=== PATIENT | male | born 1960 ===

== ENCOUNTER 2020-12-01 14:10 | Outpatient (REF) | payer MEDICAID, SELFPAY ==
[2020-12-01 17:36] LABS: Hematocrit 38.7 % (42-52); Hemoglobin 12.9 g/dl (14.0-18.0); Mean Corpuscular HGB Conc 33.3 g/dl (31.0-36.0); Mean Corpuscular Hemoglobin 30.4 pg (27.0-33.0); Mean Corpuscular Volume 91.3 fL (80-98); Mean Platelet Volume 9.7 fL (9.4-12.4); Platelet Count 273 X10*3/uL (160-400); Red Blood Count 4.24 X10*6/uL (4.60-5.80); Red Cell Distribution Width 12.2 % (11.0-16.0); White Blood Count 6.5 X10*3/uL (4.8-10.8)
[2020-12-01 18:03] LABS: Alanine Aminotransferase 13 U/L (0-40); Albumin Level 4.4 g/dL (3.5-5.0); Alkaline Phosphatase 72 U/L (39-117); Anion Gap 12 (12-20); Aspartate Amino Transferase 10 U/L (5-37); Bilirubin Total 0.9 mg/dL (0.0-1.0); Blood Urea Nitrogen 15 mg/dL (9-16); C Reactive Protein 0.12 mg/dL (< or = 0.50); Calcium 10.5 mg/dL (8.4-10.2); Carbon Dioxide 28 mmol/L (22-29); Chloride 104 mmol/L (96-108); Estimated Glomerular Filt Rate > 60; Glucose Random 78 mg/dL (60-115); Magnesium 1.9 mg/dL (1.6-2.6); Potassium 4.4 mmol/L (3.3-5.1); Sodium 140 mmol/L (135-145); Total Protein 7.1 g/dL (6.5-8.0)
[2020-12-01 18:15] LABS: Vitamin D 25-OH Total 23.6 ng/mL (>30)
[2020-12-01 18:29] LABS: Vitamin B12 304 pg/mL (200-900)
== END 2020-12-01 14:11 | disposition home or self-care (01) ==
LOC: HO.MANLDS 14:10
PROVIDERS: PCP Internal Medicine; Visit Provider Internal Medicine
DX: G35 Multiple sclerosis (principal)
CPT/HCPCS: 36415; 80053; 82306; 82550; 82607; 83735; 85027; 86140

== ENCOUNTER 2021-09-03 14:05 | Outpatient (REF) | payer MEDICARE, MEDICAID, SELFPAY ==
[2021-09-03 18:57] LABS: Hematocrit 39.3 % (42.0-52.0); Hemoglobin 12.9 g/dl (14.0-18.0); Mean Corpuscular HGB Conc 32.8 g/dl (31.0-36.0); Mean Corpuscular Hemoglobin 30.1 pg (27.0-33.0); Mean Corpuscular Volume 91.8 fL (80.0-98.0); Mean Platelet Volume 10.4 fL (9.4-12.4); Platelet Count 233 X10*3/uL (160-400); Red Blood Count 4.28 X10*6/uL (4.60-5.80); White Blood Count 5.9 X10*3/uL (4.8-10.8)
[2021-09-03 19:16] LABS: Alanine Aminotransferase 22 U/L (0-40); Albumin Level 4.2 g/dL (3.5-5.0); Alkaline Phosphatase 83 U/L (39-117); Anion Gap 12 (12-20); Aspartate Amino Transferase 15 U/L (5-37); Bilirubin Total 0.8 mg/dL (0.0-1.0); Blood Urea Nitrogen 16 mg/dL (9-16); C Reactive Protein 0.04 mg/dL (< or = 0.50); Calcium 10.7 mg/dL (8.4-10.2); Carbon Dioxide 29 mmol/L (22-29); Chloride 105 mmol/L (96-108); Estimated Glomerular Filt Rate > 60; Glucose Random 79 mg/dL (60-115); Potassium 5.6 mmol/L (3.3-5.1); Sodium 140 mmol/L (135-145)
[2021-09-03 19:33] LABS: Vitamin D 25-OH Total 28.9 ng/mL (>30)
[2021-09-04 06:23] LABS: Vitamin B12 306 pg/mL (200-900)
== END 2021-09-03 14:06 | disposition home or self-care (01) ==
LOC: HO.MANLDS 14:05
PROVIDERS: PCP Internal Medicine; Visit Provider Internal Medicine
DX: G35 Multiple sclerosis (principal)
CPT/HCPCS: 36415; 80053; 82306; 82607; 83735; 85027; 86140

== ENCOUNTER 2021-10-20 20:11 | Emergency (ER) | payer MEDICARE, MEDICAID, SELFPAY ==
--- NOTE | ~2021-10-20 | XR_ITS ---
EXAMINATION: XR CHEST CLINICAL INFORMATION: Weakness COMPARISON: None TECHNIQUE: Frontal view of the chest was obtained. FINDINGS: Cardiac leads overlie the chest. The lungs are well expanded. There is no focal consolidation, edema, or effusion. No pneumothorax. The cardiomediastinal silhouette is within normal limits. No acute osseous abnormality. XR/XR chest 1V IMPRESSION: Clear lungs.
[2021-10-20 20:24] VITALS: BP 109/68; PULSE 75; RESP 20; TEMP 37.2; O2SAT 96; BMI 20.7
--- NOTE | 2021-10-20 20:46 | ED_ITS ---
HPI - Fall General Chief Complaint: Fall Stated Complaint: fall sob Time Seen by Provider: 10/20/21 20:37 Source: patient and old records reviewed Mode of arrival: EMS Limitations: no limitations History of Present Illness HPI Narrative: 61 yo male with hx of MS states he loses is balance and today was worse than u sual denies infectious symptoms, change in medications - he fell x 2 denies head strike or injury. He states he is sick of having this. complaint: fall Onset (ago): day(s) (1) Fall from: standing Fall witnessed: yes, by family Place fall occurred: home Loss of consciousness: none Prolonged down time: no Symptoms prior to fall: none Context: history of frequent falls Severity: mild Associated symptoms (after fall): denies Related Data Allergies Allergy/AdvReac Type Severity Reaction Status Date / Time Unable to Assess Allergy Verified 10/20/21 20:58 Review of Systems Review of Systems: Constitutional : No Fever, No Chills, pos Fatigue, No Malaise ENT/Mouth : No sore throat, No Rhinorrhea Eyes: No Eye Pain, No Swelling, No Redness Cardiovascular : No Chest Pain, No SOB, No Dyspnea on Exertion, No Orthopnea, No Edema, No Palpitations Respiratory : No Cough, No Sputum, No Wheezing Gastrointestinal : No Nausea, No Vomiting, No Diarrhea, No Constipation, No abdominal Pain, No Hematochezia, No Melena Genitourinary : No Dysuria, No Urinary Frequency, No Hematuria, Musculoskeletal : No joint pain, No Myalgias, No Joint Swelling Skin : No Skin Lesions, No rash Neuro : pos Weakness, No Numbness, No Dizziness, No Headache Psych : No Anxiety/Panic, No Depression Heme/Lymph: No Bruising, No Bleeding,No Lymphadenopathy Endocrine : No Polyuria, No Polydipsia All other systems reviewed and are negative PMFSH Past Medical History Attestation statement: The following information was validated with the patient. Medical History Multiple sclerosis Social History Social History (Updated 10/20/21 @ 22:01 by Ericka Byrd DO) Patient Tobacco Use Status: Never used Tobacco Advance Directives: No Advance Directives Information Provided: No Physical Exam Vital Signs: Vital Signs: Last Vital Signs Temp 98.9 F 10/20/21 20:24 Pulse 56 10/20/21 23:53 Resp 17 10/20/21 23:53 BP 116/67 10/20/21 23:53 Pulse Ox 98 10/20/21 23:53 O2 Del Method 10/20/21 23:53 BMI result Body Mass Index 20.7 Appearance: Alert. Oriented X3. No acute distress. Eyes: Pupils equal, round and reactive to light. ENT: Pharynx mild dry MM Neck: Normal inspection. Neck supple. CVS: Normal heart rate and rhythm. Pulses normal. Respiratory: No respiratory distress. Breath sounds normal. Abdomen: Soft and nontender. Skin: Skin warm and dry. Normal skin color. poor skin turgor. Extremities: No lower extremity edema. No calf ttp Neuro: Oriented X 3. No motor deficit. No sensory deficit. Course Course Course Narrative: discussed findings with - patient states he wants to go home, both aware no imaging of head was done patient wants to leave and doesn't want to stay for urine sample, aware, patient just wants to go home, aware we are looking for infection, he is GCS 15. MDM - Fall MDM Narrative Medical decision making narrative: 61 yo male with hx of MS here with 2 falls he denies head strike or injury - at this time will obtain labs, UA, CXR for pneumonia or precipitating cause for weakness. Will hydrate - he denies wanting to go to rehab and wants to go back home to live with his . Lab Data Result diagrams: 10/20/21 21:40 10/20/21 21:40 Labs: Lab Results 10/20/21 10/20/21 10/20/21 Range/Units 21:39 21:40 21:40 WBC 10.4 (4.8-10.8) X10*3/uL RBC 4.35 L (4.60-5.80) X10*6/uL Hgb 13.0 L (14.0-18.0) g/dl Hct 38.7 L (42.0-52.0) % MCV 89.0 (80.0-98.0) fL MCH 29.9 (27.0-33.0) pg MCHC 33.6 (31.0-36.0) g/dl RDW 12.5 (11.0-16.0) % Plt Count 211 (160-400) X10*3/uL MPV 9.4 (9.4-12.4) fL Immature Gran % (Auto) 0.3 (0.0-0.4) % Neut % (Auto) 87.9 H (45-73) % Lymph % (Auto) 4.7 L (20-40) % [place] % (Auto) 5.6 (2-11) % Eos % (Auto) 1.3 (0-4) % Baso % (Auto) 0.2 (0-2) % Lymph # (Auto) 0.5 L (1.2-4.9) X10*3/uL [place] # (Auto) 0.6 (0.1-1.2) X10*3/uL Eos # (Auto) 0.1 (0.0-0.4) X10*3/uL Baso # (Auto) 0.0 (0.0-0.2) X10*3/uL Abs Immat Gran (auto) 0.03 (0.00-0.03) X10*3/uL Absolute Neuts (auto) 9.2 H (2.0-8.3) x10*3/uL Absolute Nucleated RBC 0.000 (0.0-0.012) X10*3/uL Nucleated RBC % (auto) 0.0 (0.0-0.2) /100WBC Sodium 141 (135-145) mmol/L Potassium 4.2 D (3.3-5.1) mmol/L Chloride 103 (96-108) mmol/L Carbon Dioxide 30 H (22-29) mmol/L Anion Gap 12 (12-20) BUN 22 H (9-16) mg/dL Creatinine 1.06 (0.5-1.4) mg/dL Estim Creat Clear Calc 64.9 Estimated GFR > 60 Random Glucose 107 D (60-115) mg/dL Calcium 9.9 D (8.4-10.2) mg/dL Magnesium 2.0 (1.6-2.6) mg/dL Total Bilirubin 0.8 (0.0-1.0) mg/dL Direct Bilirubin 0.4 (0.0-0.5) mg/dL AST 55 H (5-37) U/L ALT 40 (0-40) U/L Alkaline Phosphatase 129 H D (39-117) U/L Total Creatine Kinase 190 H D (38-174) U/L Total Protein 6.8 (6.5-8.0) g/dL Albumin 4.1 (3.5-5.0) g/dL Lipase 19 (8-78) U/L COVID-19 (EYAD) Negative (Negative) COVID-19 Clin Com See Note ECG Data Attestation: I personally reviewed and interpreted this ECG as follows: ECG interpretation date: 10/20/21 ECG interpretation time: 22:11 Interpretation: Rate: 67 Rhythm: NSR Lizella: normal Normal P waves. Normal EUNICE. Normal QRS complex. ST T wave : nonspecific aVL, no SHANE qTC: normal prior studies: no acute ischemia The study has been interpreted contemporaneously by me. . Discharge Plan Discharge Clinical Impression: Acute dehydration Falls Qualifiers: Encounter type: initial encounter Qualified Code(s): W19.XXXA - Unspecified fall, initial encounter Patient Disposition: Home, Self-Care Instructions: Dehydration (ED) Additional Instructions: return to ED for any worsening symptoms or concerns given hydration in emergency department chest xray negative for pneumonia offered to test urine in the emergency department but you declined please follow up with your doctor this week
--- NOTE | 2021-10-20 20:59 | ECG_ITS ---
Test Reason : weakness Blood Pressure : / mmHG Vent. Rate : 067 BPM Atrial Rate : 067 BPM P-R Int : 146 ms QRS Dur : 092 ms QT Int : 390 ms P-R-T Axes : 056 081 077 degrees QTc Int : 412 ms Normal sinus rhythm Normal ECG No previous ECGs available Referred By: Ericka Byrd Electronically Signed By:Bakari Mcfarlane
[2021-10-20] MEDS: 0.9 % Sodium Chloride 1,000 ML 999 ML IVCONT (21:53)
--- NOTE | 2021-10-20 21:53 | PC.NURSE ---
NS administered to pt per MAR
[2021-10-20 21:54] LABS: MANUAL DIFF FLAG NO
[2021-10-20 21:55] LABS: Basophils Percent Auto 0.2 % (0-2); Eosinophils Absolute Auto 0.1 X10*3/uL (0.0-0.4); Eosinophils Percent Auto 1.3 % (0-4); Hematocrit 38.7 % (42.0-52.0); Imm Gran Abs Auto 0.03 X10*3/uL (0.00-0.03); Imm Gran Pct Auto 0.3 % (0.0-0.4); Lymphocytes Absolute Auto 0.5 X10*3/uL (1.2-4.9); Lymphocytes Percent Auto 4.7 % (20-40); Mean Corpuscular HGB Conc 33.6 g/dl (31.0-36.0); Mean Corpuscular Hemoglobin 29.9 pg (27.0-33.0); Mean Platelet Volume 9.4 fL (9.4-12.4); Monocytes Absolute Auto 0.6 X10*3/uL (0.1-1.2); Monocytes Percent Auto 5.6 % (2-11); Neutrophils Absolute Auto 9.2 x10*3/uL (2.0-8.3); Neutrophils Percent Auto 87.9 % (45-73); Platelet Count 211 X10*3/uL (160-400); Red Blood Count 4.35 X10*6/uL (4.60-5.80); Red Cell Distribution Width 12.5 % (11.0-16.0); White Blood Count 10.4 X10*3/uL (4.8-10.8)
[2021-10-20 22:06] LABS: COVID-19 Test Negative (Negative)
[2021-10-20 22:13] LABS: Alanine Aminotransferase 40 U/L (0-40); Albumin Level 4.1 g/dL (3.5-5.0); Alkaline Phosphatase 129 U/L (39-117); Anion Gap 12 (12-20); Aspartate Amino Transferase 55 U/L (5-37); Bilirubin Direct 0.4 mg/dL (0.0-0.5); Bilirubin Total 0.8 mg/dL (0.0-1.0); Blood Urea Nitrogen 22 mg/dL (9-16); Calcium 9.9 mg/dL (8.4-10.2); Carbon Dioxide 30 mmol/L (22-29); Chloride 103 mmol/L (96-108); Creatinine Clr Calc Pharmacy 64.9; Estimated Glomerular Filt Rate > 60; Glucose Random 107 mg/dL (60-115); Lipase 19 U/L (8-78); Potassium 4.2 mmol/L (3.3-5.1); Sodium 141 mmol/L (135-145); Total Protein 6.8 g/dL (6.5-8.0)
[2021-10-20 23:53] VITALS: BP 116/67; PULSE 56; RESP 17; O2SAT 98
--- NOTE | 2021-10-21 00:32 | PC.NURSE ---
Patient attempting to urinate but after numerous attempts patient still unable to pee. Patient states he cannot do it here. Patient was bladder scanned to see if he was retaining urine.
--- NOTE | 2021-10-21 00:38 | PC.NURSE ---
Patient had 550 in his bladder. Patient just wants to go home and is refusing to be straight cathed. MD aware and states that patient can go home
== END 2021-10-21 00:39 | disposition home or self-care (01) ==
PROVIDERS: Emergency Provider Emergency Medicine; PCP Internal Medicine
DX: E86.0 Dehydration (principal); R29.6 Repeated falls; G35 Multiple sclerosis; Z20.822 Contact with and (suspected) exposure to COVID-19
CPT/HCPCS: 51798; 71045; 80048; 80076; 82550; 83690; 83735; 85025; 87635; 93005; 96360; 99284; 99285

== ENCOUNTER 2021-10-29 07:51 | Outpatient (REF) | payer MEDICARE, MEDICAID, SELFPAY ==
--- NOTE | ~2021-10-29 | XR_ITS ---
EXAMINATION: XR CHEST CLINICAL INFORMATION: Possible aspiration status post barium swallow. COMPARISON: 10/20/2021 chest radiograph. TECHNIQUE: 2 views of the chest were obtained. FINDINGS: Oral contrast is seen within the airway in the trachea and left mainstem bronchus extending to the left lower lobe. Mild contrast is seen within the esophagus and visualized gastric lumen. The lungs are clear. There are no pleural effusions. The heart and mediastinal structures are unremarkable. XR/XR chest 2V IMPRESSION: Positive aspiration of barium contrast as detailed above.
--- NOTE | ~2021-10-29 | FL_ITS ---
EXAMINATION: FL BARIUM SWALLOW CLINICAL INFORMATION: Dysphagia for solids and liquids. COMPARISON: None TECHNIQUE: Barium swallow examination is performed using fluoroscopic evaluation in addition to multiple fluoroscopic spot views. The patient was enlarged supine and semiupright position on the fluoroscopy table. He was not able to stand because of weakness secondary to multiple sclerosis. Fluoroscopy time: 1.3 minutes minutes DAP: 1.371 Gycm2 FINDINGS: Evaluation was limited due to difficulties with patient positioning due to weakness for multiple sclerosis. The patient swallowed thin barium by cup, initiating swallowing normally. Normal esophageal peristalsis seen. No fixed esophageal mucosal abnormality. The patient was then given thin barium by cup. He swallowed a single swallow normally but when asked to drink repeat swallows, the patient aspirated and the study was terminated. FL/FL barium swallow IMPRESSION: Moderate volume aspiration of thick barium. Please see subsequent chest x-ray. Recommend swallowing evaluation by speech and language therapy.
== END 2021-10-29 07:52 | disposition home or self-care (01) ==
LOC: HO.XRAY 07:51
PROVIDERS: PCP Internal Medicine; Visit Provider Physician Assistant
DX: R13.12 Dysphagia, oropharyngeal phase (principal)
CPT/HCPCS: 71046; 74220

== ENCOUNTER 2021-10-31 10:07 | Outpatient (REF) | payer MEDICARE, MEDICAID, SELFPAY ==
--- NOTE | ~2021-10-31 | XR_ITS ---
EXAMINATION: XR CHEST CLINICAL INFORMATION: Pneumonitis due to inhalation of food/vomiting COMPARISON: Examination of 2 days previous. TECHNIQUE: 2 views of the chest were obtained. FINDINGS: Previously aspirated barium no longer distinctly seen. No evidence for airspace consolidation or vascular congestion. Slight blunting of posterior sulcus and costophrenic angles observed which may reflect small effusions. XR/XR chest 2V IMPRESSION: Previously aspirated barium no longer distinctly seen. No dominant infiltrates observed. Small posterior sulcus and costophrenic angle effusions.
== END 2021-10-31 10:08 | disposition home or self-care (01) ==
LOC: HO.XRAY 10:07
PROVIDERS: PCP Internal Medicine; Visit Provider Physician Assistant
DX: J69.0 Pneumonitis due to inhalation of food and vomit (principal)
CPT/HCPCS: 71046

== ENCOUNTER 2021-11-14 11:47 | Outpatient (REF) | payer MEDICARE, MEDICAID, SELFPAY ==
[2021-11-14 12:36] LABS: MANUAL DIFF FLAG NO
[2021-11-14 12:37] LABS: Basophils Absolute Auto 0.1 X10*3/uL (0.0-0.2); Basophils Percent Auto 1.2 % (0-2); Eosinophils Absolute Auto 0.2 X10*3/uL (0.0-0.4); Eosinophils Percent Auto 4.6 % (0-4); Hematocrit 38.5 % (42.0-52.0); Imm Gran Abs Auto 0.01 X10*3/uL (0.00-0.03); Imm Gran Pct Auto 0.2 % (0.0-0.4); Lymphocytes Absolute Auto 1.1 X10*3/uL (1.2-4.9); Lymphocytes Percent Auto 24.9 % (20-40); Mean Corpuscular HGB Conc 33.8 g/dl (31.0-36.0); Mean Corpuscular Hemoglobin 30.7 pg (27.0-33.0); Mean Corpuscular Volume 90.8 fL (80.0-98.0); Mean Platelet Volume 10.8 fL (9.4-12.4); Monocytes Absolute Auto 0.3 X10*3/uL (0.1-1.2); Monocytes Percent Auto 7.1 % (2-11); Neutrophils Absolute Auto 2.7 x10*3/uL (2.0-8.3); Platelet Count 228 X10*3/uL (160-400); Red Blood Count 4.24 X10*6/uL (4.60-5.80); Red Cell Distribution Width 13.1 % (11.0-16.0); White Blood Count 4.3 X10*3/uL (4.8-10.8)
[2021-11-14 14:33] LABS: Thyroid Stimulating Hormone 1.86 uIU/mL (0.32-4.0); Vitamin D 25-OH Total 22.9 ng/mL (>30)
[2021-11-14 14:41] LABS: Vitamin B12 340 pg/mL (200-900)
[2021-11-14 15:05] LABS: Alanine Aminotransferase 31 U/L (0-40); Albumin Level 4.2 g/dL (3.5-5.0); Alkaline Phosphatase 87 U/L (39-117); Anion Gap 15 (12-20); Aspartate Amino Transferase 23 U/L (5-37); Bilirubin Total 0.8 mg/dL (0.0-1.0); Blood Urea Nitrogen 14 mg/dL (9-16); Calcium 9.9 mg/dL (8.4-10.2); Carbon Dioxide 26 mmol/L (22-29); Chloride 104 mmol/L (96-108); Estimated Glomerular Filt Rate > 60; Glucose Random 96 mg/dL (60-115); Potassium 4.5 mmol/L (3.3-5.1); Sodium 140 mmol/L (135-145); Total Protein 6.9 g/dL (6.5-8.0)
== END 2021-11-14 11:48 | disposition home or self-care (01) ==
LOC: HO.MANLDS 11:47
PROVIDERS: Visit Provider Internal Medicine
DX: E46 Unspecified protein-calorie malnutrition (principal)
CPT/HCPCS: 36415; 80053; 82306; 82607; 84134; 84443; 85025

== ENCOUNTER 2022-03-04 12:08 | Outpatient (REF) | payer MEDICARE, MEDICAID, SELFPAY ==
[2022-03-04 13:56] LABS: MANUAL DIFF FLAG NO
[2022-03-04 13:59] LABS: Basophils Percent Auto 0.4 % (0-2); Eosinophils Percent Auto 0.5 % (0-4); Hematocrit 38.4 % (42.0-52.0); Hemoglobin 12.9 g/dl (14.0-18.0); Imm Gran Abs Auto 0.03 X10*3/uL (0.00-0.03); Imm Gran Pct Auto 0.5 % (0.0-0.4); Lymphocytes Absolute Auto 0.9 X10*3/uL (1.2-4.9); Lymphocytes Percent Auto 15.9 % (20-40); Mean Corpuscular HGB Conc 33.6 g/dl (31.0-36.0); Mean Corpuscular Hemoglobin 31.6 pg (27.0-33.0); Mean Corpuscular Volume 94.1 fL (80.0-98.0); Mean Platelet Volume 10.7 fL (9.4-12.4); Monocytes Absolute Auto 0.7 X10*3/uL (0.1-1.2); Monocytes Percent Auto 11.9 % (2-11); Neutrophils Absolute Auto 3.9 x10*3/uL (2.0-8.3); Neutrophils Percent Auto 70.8 % (45-73); Platelet Count 234 X10*3/uL (160-400); Red Blood Count 4.08 X10*6/uL (4.60-5.80); White Blood Count 5.5 X10*3/uL (4.8-10.8)
[2022-03-04 14:44] LABS: Erythrocyte Sedimentation Rate 18 MM/HR (0-15)
[2022-03-04 14:52] LABS: Alanine Aminotransferase 36 U/L (0-40); Albumin Level 3.9 g/dL (3.5-5.0); Alkaline Phosphatase 86 U/L (39-117); Anion Gap 13 (12-20); Aspartate Amino Transferase 30 U/L (5-37); Blood Urea Nitrogen 19 mg/dL (9-16); Calcium 9.8 mg/dL (8.4-10.2); Carbon Dioxide 29 mmol/L (22-29); Chloride 100 mmol/L (96-108); Estimated Glomerular Filt Rate > 60; Glucose Random 80 mg/dL (60-115); Potassium 4.3 mmol/L (3.3-5.1); Prostate Specific Antigen 0.71 ng/mL (<0.05-4.0); Sodium 138 mmol/L (135-145); Thyroid Stimulating Hormone 1.93 uIU/mL (0.32-4.0); Total Protein 6.5 g/dL (6.5-8.0)
== END 2022-03-04 12:09 | disposition home or self-care (01) ==
LOC: HO.MANLDS 12:08
PROVIDERS: Visit Provider Internal Medicine
DX: Z00.00 Encounter for general adult medical examination without abnormal findings (principal); Z12.5 Encounter for screening for malignant neoplasm of prostate
CPT/HCPCS: 36415; 80053; 84153; 84443; 85025; 85652

== ENCOUNTER 2022-03-05 14:28 | Outpatient (REF) | payer MEDICARE, MEDICAID, SELFPAY ==
[2022-03-05 18:03] LABS: Appearance Urine Clear; Color Urine Yellow; Glucose Urine UA Negative (Negative); Leukocyte Esterase Urine Small (1+) (Negative); Nitrite Urine Positive (Negative); PH >= 9.0 (5.0-9.0); UMIC TRIGGER UACC YES; Urine Blood Trace (Negative); Urine Ketones Negative (Negative); Urine Protein Negative (Neg-Trace)
[2022-03-05 18:18] LABS: Bacteria Urine 2+ (None Seen); Hyaline Casts Urine 0-2 /LPF (0-2); Squamous Epithelial Cell Urine 0-2 /HPF (0-2); UACC Culture Trigger YES; WBC Urine 0-5 /HPF (0-5)
== END 2022-03-05 14:29 | disposition home or self-care (01) ==
LOC: HO.MANLDS 14:28
PROVIDERS: Visit Provider Internal Medicine
DX: Z00.00 Encounter for general adult medical examination without abnormal findings (principal)
CPT/HCPCS: 81001; 87086

== ENCOUNTER 2022-10-08 07:27 | Observation (INO) | payer MEDICARE, MEDICAID, SELFPAY ==
[2022-10-08] VITALS (7 sets, daily range): BP systolic 99–135; BP diastolic 56–79; PULSE 63–80; RESP 16–20; TEMP 36.3–37; O2SAT 91–96; BMI 20.5; BMI 20.1
--- NOTE | ~2022-10-08 | CT_ITS ---
EXAMINATION: CT CERVICAL SPINE WITHOUT CONTRAST CLINICAL INFORMATION: Unwitnessed fall. COMPARISON: None available. TECHNIQUE: Multiple axial images of the cervical spine were obtained without the administration of intravenous contrast. Coronal and sagittal reformatted images were obtained. This CT examination was performed using dose optimization techniques as appropriate, variously including the following: *Automated exposure control *Adjustment of mA and/or kV according to patient size (this includes techniques or standardized protocols for targeted exams where dose is matched to indication/reason for exam; i.e. extremities or head) *Use of iterative reconstruction technique DLP: 304 mGy-cm FINDINGS: There is normal cervical lordosis and spinal alignment. The vertebral bodies and odontoid processes are intact. Mild odontoid process articulating degenerative changes are seen. The neural foramina are patent. Mild bilateral facet arthropathy is seen. The spinous and transverse processes are unremarkable. The cervical soft tissues are unremarkable. Mild to moderate atherosclerosis is seen at the level the carotid bulbs bilaterally, greater on the right. There is no lymphadenopathy. The thyroid gland is unremarkable. The visualized lung apices are clear. CT/CT cervical spine wo IV con IMPRESSION: Unremarkable cervical spine. No acute abnormality.
--- NOTE | ~2022-10-08 | XR_ITS ---
EXAMINATION: XR CHEST CLINICAL INFORMATION: Cough. COMPARISON: 10/01/2021 chest radiographs. TECHNIQUE: Frontal view of the chest was obtained. FINDINGS: No significant abnormality is noted involving the heart, lungs, mediastinum, bony thorax or soft tissues. XR/XR chest 1V IMPRESSION: No acute cardiopulmonary process.
--- NOTE | ~2022-10-08 | XR_ITS ---
EXAMINATION: XR CERVICAL SPINE LATERAL VIEW CLINICAL INFORMATION: Unwitnessed fall COMPARISON: None available. TECHNIQUE: Single crosstable lateral cervical spine FINDINGS: Nondiagnostic due to severe positioning limitations. XR/XR cervical spine 1V IMPRESSION: Nondiagnostic study.
--- NOTE | 2022-10-08 07:31 | ED_ITS ---
HPI - Fall General Chief Complaint: Fall Stated Complaint: UNWITNESSED FALL + COLLAR Time Seen by Provider: 10/08/22 07:31 Source: patient and EMS Mode of arrival: EMS Limitations: no limitations History of Present Illness HPI Narrative: 62 year old male, history of MS, presenting to the ED via EMS today s/p unwitn essed fall at home with unknown downtime. Per EMS, the patient's family found him on the floor of the bathroom upon waking up this morning. The family does not know how long the patient was down. Patient states that he does not know why he was walking to the bathroom and does not recall falling. Patient does not normally ambulate independently. He presents today with abrasions to his left arm. No complaints current. Related Data Allergies Allergy/AdvReac Type Severity Reaction Status Date / Time No Known Allergies Allergy Verified 10/08/22 07:42 Review of Systems Review of Systems: Yes all other systems are reviewed and are negative Neurologic: Denies Sensory deficit (Neuro) PMFSH Past Medical History Medical History Multiple sclerosis Social History Social History Patient Tobacco Use Status: Never used Tobacco Smoked in Last 30 Days: No Use of substances other than those prescribed or required for medical reasons: No Advance Directives: No Physical Exam Vital Signs: Vital Signs: Last Vital Signs Temp 98.6 F 10/08/22 07:38 Pulse 66 10/08/22 11:27 Resp 16 10/08/22 11:27 BP 102/56 L 10/08/22 11:27 Pulse Ox 91 L 10/08/22 11:27 O2 Del Method Nasal Cannula 10/08/22 11:27 O2 Flow Rate 2 10/08/22 11:27 BMI result Body Mass Index 20.5 Const: General: alert, awake and ill appearing Nutritional Appearance: average body habitus and thin Orientation/consciousness: oriented to person and patient oriented x3 Limitations: no limitations and other limitations HEENT: Head: Yes normal to inspection Ears: external ears normal General nose exam: Normal external nose present Mouth: Normal oral and palatal mucosa present and oropharynx normal Throat: Yes posterior oropharynx normal Eyes: General: appearance normal, both eyes and all related structures Neck: Other: supple Neck: Yes normal visual inspection Chest: Chest palpation & inspection: normal inspection of the chest Resp: Auscultation: clear to auscultation bilaterally Cardio: Jugular venous distension: no JVD Rate: regular rate Rhythm: regular rhythm Heart sounds: S1 normal heart sound present and S2 normal heart sound present GI: Other: peg in place Inspection: Yes normal to inspection Palpation (GI): Soft to palpation, nontender and No hepatosplenomegaly present Auscultation: normal bowel sounds : General: Yes no CVA tenderness Back/Spine/Pelvis: Back: no CVA tenderness Skin: Other: + abrasions to left arm Neuro: General: oriented to person and patient oriented x3 Cranial nerves: Yes CN's II-XII intact bilaterally Motor exam (neuro): 5/5 motor strength present throughout Sensory Exam: No Sensory deficit (Neuro) Extrem: General: Yes normal to inspection Psych: Appearance: grossly normal Course Reevaluation(s) Reevaluation #1: Patient with hypernatremia and elevated BUN consistent with dehydration. In addition, straight cath UA looks infected and started ceftriaxone. Will admit. Time: 11:53 Medications Administered Generic Name Dose Route Start Last Admin Trade Name Freq PRN Reason Stop Dose Admin Sodium Chloride 1,000 mls @ 200 mls/hr 10/08/22 09:45 10/08/22 10:05 Ns IVCONT 10/08/22 14:44 200 mls/hr .Q5H FLACO Administration Medical Decision Making Differential Diagnosis Differential Diagnoses: The differential diagnosis associated with the presentation includes (rhabdomyolysis, UTI, dehydration, PNA, cervical fracture were all considered. ) Admission/Observation Consideration of admission/observation: Escalation of care including admission/observation considered (Upon arrival this 62 yo with MS found on floor for multiple hours was immediately considered for admission.) Consult Healthcare Provider Management of the patient was discussed with: Hospitalist Lab Data MDM Lab Attestation statement: I reviewed the patient's lab results. (Elevated sodium and BUN consistent with dehydration. Elevated WBC count, elevated WBC in urine all noted. ) 10/08/22 07:41 10/08/22 07:41 Labs: Lab Results 10/08/22 10/08/22 10/08/22 Range/Units 07:41 07:41 11:02 WBC 19.4 H (4.8-10.8) X10*3/uL RBC 3.56 L (4.60-5.80) X10*6/uL Hgb 11.0 L (14.0-18.0) g/dl Hct 33.3 L (42.0-52.0) % MCV 93.5 (80.0-98.0) fL MCH 30.9 (27.0-33.0) pg MCHC 33.0 (31.0-36.0) g/dl RDW 12.6 (11.0-16.0) % Plt Count 228 (160-400) X10*3/uL MPV 10.3 (9.4-12.4) fL Immature Gran % (Auto) 0.7 H (0.0-0.4) % Neut % (Auto) 88.5 H (45-73) % Lymph % (Auto) 1.8 L (20-40) % [place] % (Auto) 7.4 (2-11) % Eos % (Auto) 1.2 (0-4) % Baso % (Auto) 0.4 (0-2) % Lymph # (Auto) 0.4 L (1.2-4.9) X10*3/uL [place] # (Auto) 1.4 H (0.1-1.2) X10*3/uL Eos # (Auto) 0.2 (0.0-0.4) X10*3/uL Baso # (Auto) 0.1 (0.0-0.2) X10*3/uL Abs Immat Gran (auto) 0.13 H (0.00-0.03) X10*3/uL Absolute Neuts (auto) 17.2 H (2.0-8.3) x10*3/uL Absolute Nucleated RBC 0.000 (0.0-0.012) X10*3/uL Nucleated RBC % (auto) 0.0 (0.0-0.2) /100WBC Sodium 146 H (135-145) mmol/L Potassium 3.7 (3.3-5.1) mmol/L Chloride 106 (96-108) mmol/L Carbon Dioxide 27 (22-29) mmol/L Anion Gap 17 (12-20) BUN 37 H (9-16) mg/dL Creatinine 0.80 (0.5-1.4) mg/dL Estim Creat Clear Calc 86.7 Estimated GFR > 60 Random Glucose 116 H (60-115) mg/dL Calcium 10.7 H D (8.4-10.2) mg/dL Total Creatine Kinase 209 H (38-174) U/L Urine Color Yellow Urine Appearance Clear Urine pH >= 9.0 (5.0-9.0) Ur Specific [place] 1.020 (1.005-1.025) Urine Protein Trace (Neg-Trace) mg/dL Urine Glucose (UA) Negative (Negative) mg/dL Urine Ketones Negative (Negative) mg/dL Urine Blood Trace H (Negative) Urine Nitrite Negative (Negative) Ur Leukocyte Esterase Trace H (Negative) Urine RBC 11-20 H (0-2) /HPF Urine WBC 6-10 H (0-5) /HPF Ur Squamous Epith Cells 0-2 (0-2) /HPF Urine Bacteria 4+ (None Seen) Hyaline Casts 0-2 (0-2) /LPF Independent Interpretation I performed an independent interpretation of an: Plain X-Ray (Cervical: severe kyphosis, unreadable. ) and CT Scan (Cervical: no fracture ) Independent Historian Clinical information obtained from an independent historian. History obtained from or confirmed by: EMS Chronic Conditions Patient?s care impacted by: Other (MS) Discharge Plan Discharge Clinical Impression: Acute UTI, Dehydration Patient Disposition: Admitted As Inpatient
[2022-10-08 07:45] LABS: MANUAL DIFF FLAG NO
[2022-10-08 07:49] LABS: Basophils Absolute Auto 0.1 X10*3/uL (0.0-0.2); Basophils Percent Auto 0.4 % (0-2); Eosinophils Absolute Auto 0.2 X10*3/uL (0.0-0.4); Eosinophils Percent Auto 1.2 % (0-4); Hematocrit 33.3 % (42.0-52.0); Imm Gran Abs Auto 0.13 X10*3/uL (0.00-0.03); Imm Gran Pct Auto 0.7 % (0.0-0.4); Lymphocytes Absolute Auto 0.4 X10*3/uL (1.2-4.9); Lymphocytes Percent Auto 1.8 % (20-40); Mean Corpuscular Hemoglobin 30.9 pg (27.0-33.0); Mean Corpuscular Volume 93.5 fL (80.0-98.0); Mean Platelet Volume 10.3 fL (9.4-12.4); Monocytes Absolute Auto 1.4 X10*3/uL (0.1-1.2); Monocytes Percent Auto 7.4 % (2-11); Neutrophils Absolute Auto 17.2 x10*3/uL (2.0-8.3); Neutrophils Percent Auto 88.5 % (45-73); Platelet Count 228 X10*3/uL (160-400); Red Blood Count 3.56 X10*6/uL (4.60-5.80); Red Cell Distribution Width 12.6 % (11.0-16.0); White Blood Count 19.4 X10*3/uL (4.8-10.8)
--- NOTE | 2022-10-08 08:09 | PC.NURSE ---
pt alert and oriented to baseline, respirations even and unlabored but does have a junky intermittent cough, pt does have some abrasions to the bilateral upper extremities, g-tube in place, vs stable and pt denies pain at this time, pt had a unwitnessed fall at home was found by family on the ground in the bathroom. pt was put in a c-collar per ems
[2022-10-08 08:12] LABS: Anion Gap 17 (12-20); Blood Urea Nitrogen 37 mg/dL (9-16); Calcium 10.7 mg/dL (8.4-10.2); Carbon Dioxide 27 mmol/L (22-29); Chloride 106 mmol/L (96-108); Creatinine Clr Calc Pharmacy 86.7; Estimated Glomerular Filt Rate > 60; Glucose Random 116 mg/dL (60-115); Potassium 3.7 mmol/L (3.3-5.1); Sodium 146 mmol/L (135-145)
[2022-10-08] MEDS: 0.9 % Sodium Chloride 1,000 ML 200 ML IVCONT (10:05)
--- NOTE | 2022-10-08 10:12 | MHC.EDTECH ---
Blood cultures collected and sent to lab
[2022-10-08 11:08] LABS: Appearance Urine Clear; Color Urine Yellow; Glucose Urine UA Negative (Negative); Leukocyte Esterase Urine Trace (Negative); Nitrite Urine Negative (Negative); PH >= 9.0 (5.0-9.0); UMIC TRIGGER UACC YES; Urine Blood Trace (Negative); Urine Ketones Negative (Negative); Urine Protein Trace mg/dL (Neg-Trace)
[2022-10-08 11:20] LABS: Bacteria Urine 4+ (None Seen); Hyaline Casts Urine 0-2 /LPF (0-2); Squamous Epithelial Cell Urine 0-2 /HPF (0-2); UACC Culture Trigger YES
[2022-10-08] MEDS: cefTRIAXone sodium 1 GM in 0.9 % Sodium Chloride 50 ML IV (11:59)
--- NOTE | 2022-10-08 12:00 | PC.NURSE ---
Resumed care of patient, C-Collar remains in place awaiting CT results. O2 placed on pt d/t 82% room air, 93% on 2L currently. IV antx ordered and given at this time
--- NOTE | 2022-10-08 12:25 | PM.IMHP ---
History of Present Illness Date of Service: 10/08/22 Attending physician on admission: Blake Meraz Chief Complaint: Unwitnessed fall Pt is a 62-year-old male with a PMH significant for?advanced MS not on home meds who presents to the ED for evaluation of fall this morning. Pt was found by on the floor of her bathroom when she woke. It is unknown how long the patient has been on the ground. Patient has advanced MS and is supposed to get around via wheelchair in the house. Patient's reports the patient has lately been forgetting to use his wheelchair and attempting to walk on his own. Has had multiple falls in the past few weeks though he has declined to come to the emergency room for all prior falls to today. Patient himself does not know how he fell. Denies lightheadedness or dizziness, does not think he tripped over anything. He also cannot provide a reason for why he did not use his wheelchair this morning. Patient currently denies any acute medical complaints. Denies any musculoskeletal pain. No headache. No chest pain/pressure, palpitations. Shortness of breath. Denies fever, chills, nausea, vomiting, diarrhea, abdominal pain. Patient's notes he has been urinating much more frequently than normal the past few days. Patient denies dysuria. Patient's also reports cognitive decline in the patient during the last year so, but especially in the past 3-4 weeks. Patient has been more forgetful than normal, confused at times. notes, for instance, she often finds the patient running his head under the sink without a clear reason as to why he is doing this. Pt is not currently on any MS meds and not followed by neurology, only his PCP. Last visit to a neurologist was a few years ago. Of note, patient arrived via EMS with cervical collar in place d/t patient's neck contracture from MS. Patient not complaining of neck pain. CT of cervical spine showed no acute abnormality and cervical spine collar was removed. In the ED patient was afebrile but with soft BP as low was 99/57. Labs were significant for leukocytosis of 19.4, H&H of 11.0/33.3, sodium of 146, elevated BUN of 37, creatinine kinase 209. UA positive for leukocyte esterase, wbc's 6-10, urine bacteria 4+, negative for nitrate. CXR showed no acute cardiopulmonary process. X-ray of cervical spine non diagnostic. CT of cervical spine unremarkable with no acute abnormality. Pt was treated with IVF and ceftriaxone. Pt will be admitted to the hospital under observation for treatment further evaluation of dehydration and UTI in the setting of advanced MS. Review of Systems Review of Systems: Unwitnessed fall at home Increased confusion and memory loss during past year, especially past 3-4 weeks Polyuria Denies dysuria No fever, chills, nausea, vomiting, abdominal pain Denies shortness of breath No chest pain/pressure, palpitations Denies neck pain No musculoskeletal pain Yes all other systems are reviewed and are negative [facility] Medical History Multiple sclerosis Social History Patient Tobacco Use Status: Never used Tobacco Meds Allergies Allergy/AdvReac Type Severity Reaction Status Date / Time No Known Allergies Allergy Verified 10/08/22 07:42 Active Medications: Current Medications Sodium Chloride (Ns) 1,000 mls @ 200 mls/hr IVCONT .Q5H FLACO Stop: 10/08/22 14:44 Last Infusion: 10/08/22 12:00 Dose: Infused Home Medications Medication Instructions Recorded Confirmed Last Taken Type docusate sodium 50 mg capsule 50 mg PO DAILY PRN Constipation 10/08/22 10/08/22 Unknown History Physical Exam Vital Signs and Narrative: Vital Signs: Last Vital Signs Temp 98.6 F 10/08/22 07:38 Pulse 63 10/08/22 12:00 Resp 16 10/08/22 12:00 BP 113/63 10/08/22 12:00 Pulse Ox 93 10/08/22 12:00 O2 Del Method Nasal Cannula 10/08/22 12:00 O2 Flow Rate 2 10/08/22 12:00 BMI result Body Mass Index 20.5 Constitutional: Alert, shanice mostly immobile in bed, in no acute distress. Mental Status: Oriented to person, place and time. Eyes: Pupils are equal, round, and reactive to light. Ear, Nose, and Throat: Oropharynx clear, mucous membranes moist. Ears and nose without deformities. Trachea midline. Respiratory: Clear to auscultation bilaterally. No wheezing, rales, or rhonchi. Cardiovascular: S1, S2 regular. No murmurs, rubs, or gallops. Gastrointestinal: Abdomen soft, non-tender, non-distended. Normal bowel sounds. Neurologic: Patient with left neck contracture, reduced strength and ROM of upper and lower extremities bilaterally secondary to advanced MS. Musculoskeletal: No cyanosis or clubbing. Extremities: No edema. Superficial abrasions to left upper extremity. Areas of bruising around knees bilaterally. Psychiatric: Normal mood and affect. Results Labs 10/08/22 07:41 10/08/22 07:41 Labs: Laboratory Results - last 24 hr 10/08/22 10/08/22 10/08/22 07:41 07:41 11:02 MCV 93.5 MCH 30.9 MCHC 33.0 RDW 12.6 Plt Count 228 MPV 10.3 Immature Gran % (Auto) 0.7 H Neut % (Auto) 88.5 H Lymph % (Auto) 1.8 L [place] % (Auto) 7.4 Eos % (Auto) 1.2 Baso % (Auto) 0.4 Lymph # (Auto) 0.4 L [place] # (Auto) 1.4 H Eos # (Auto) 0.2 Baso # (Auto) 0.1 Abs Immat Gran (auto) 0.13 H Absolute Neuts (auto) 17.2 H Absolute Nucleated RBC 0.000 Nucleated RBC % (auto) 0.0 Anion Gap 17 Estim Creat Clear Calc 86.7 Estimated GFR > 60 Random Glucose 116 H Calcium 10.7 H D Total Creatine Kinase 209 H Urine Color Yellow Urine Appearance Clear Urine pH >= 9.0 Ur Specific [place] 1.020 Urine Protein Trace Urine Glucose (UA) Negative Urine Ketones Negative Urine Blood Trace H Urine Nitrite Negative Ur Leukocyte Esterase Trace H Urine RBC 11-20 H Urine WBC 6-10 H Ur Squamous Epith Cells 0-2 Urine Bacteria 4+ Hyaline Casts 0-2 Imaging Radiologist's Impressions: Impressions Cervical Spine X-Ray 10/08/22 08:55 IMPRESSION: Nondiagnostic study. Chest X-Ray 10/08/22 08:55 IMPRESSION: No acute cardiopulmonary process. Cervical Spine CT 10/08/22 10:25 IMPRESSION: Unremarkable cervical spine. No acute abnormality. Assessment and Plan (1) Acute UTI: Status: Acute (2) Dehydration: Status: Acute Plan Pt is a 62-year-old male with a PMH significant for?advanced MS not on home meds who presents to the ED for evaluation of fall this morning. Pt was found by on the floor of her bathroom when she woke. It is unknown how long the patient has been on the ground. Patient has advanced MS and is supposed to get around via wheelchair in the house. Patient's reports the patient has lately been forgetting to use his wheelchair and attempting to walk on his own. Has had multiple falls in the past few weeks though he has declined to come to the emergency room for all prior falls to today. Pt will be admitted to the hospital under observation for treatment further evaluation of dehydration and UTI in the setting of advanced MS. Dehydration Patient arrives with elevated BUN 37, BUN to creatinine ratio >20:1, likely prerenal Sodium mildly elevated 146 BP soft as low as 99/57 Patient given IVF in ED Will place on maintenance fluids UTI UA positive for leukocyte esterase, WBC 6-10, bacteria 4+, negative for nitrites Patient complains of polyuria, denies dysuria Patient will be treated with ceftriaxone, started 10/08/2022 Leukocytosis Unclear etiology, perhaps partially due to hemoconcentration from dehydration Patient afebrile with no acute complaints Patient being treated with ceftriaxone for UTI Patient has been resuscitated with IVF Recheck CBC tomorrow MS Patient with advanced MS, not currently on any home meds Last saw neurologist some years ago, currently only established with PCP Patient's notes declining cognitive function over the past year, especially the past 3-4 weeks Patient more forgetful, falling often d/t not using his wheelchair, increased confusion, perhaps secondary to advancing disease Neurology consult PT consult Recent falls Patient has been falling recently when attempts to walk rather than use his wheelchair Patient not complaining of any acute musculoskeletal pain Workup in ED negative for acute fracture or dislocation Most likely secondary to advancing EMS Creatinine kinase mildly elevated at 209 Patient resuscitated with IVF PT consult Diet Pt fed through G-Tube Full Code Attending:?Dr. Meraz DVT Prophylaxis: Lovenox Patient be admitted to observation for treatment evaluation of dehydration and UTI in the setting of advanced MS with IV antibiotics and IV fluids and Neurology consult. Time Spent With Patient Time: Total time managing care of this patient today ____ minutes. Quality Stroke Does the patient have a stroke diagnosis?: No VTE Prior VTE?: No VTE Risk Level:: Medical - moderate - high VTE Device Contraindication: Treatment Not Indicated VTE Drug Contraindication: N/A - Med Ordered
--- NOTE | 2022-10-08 14:02 | PHA.MEDREC ---
Pharmacy Consult ? Medication Reconciliation Spoke to family member . Tamsulosin prescription filled on 10/05/22 was never picked up and it was not started. Pharmacy has completed the medication reconciliation.
[2022-10-08] MEDS: 0.9 % Sodium Chloride 1,000 ML 100 ML IVCONT (14:41)
[2022-10-08] MEDS: 0.9 % Sodium Chloride Flush 3 ML SYRINGE IVFLUSH (14:41)
--- NOTE | 2022-10-08 14:47 | PC.NURSE ---
Attempted to call report to the M3 nurse, she was currently on lunch and was going to call back.
[2022-10-09] MEDS: 0.9 % Sodium Chloride 1,000 ML 100 ML IVCONT ×3 (02:19→23:35)
[2022-10-09 06:20] LABS: Anion Gap 12 (12-20); Blood Urea Nitrogen 24 mg/dL (9-16); Calcium 10.3 mg/dL (8.4-10.2); Carbon Dioxide 26 mmol/L (22-29); Chloride 111 mmol/L (96-108); Creatinine Clr Calc Pharmacy 106.1; Estimated Glomerular Filt Rate > 60; Glucose Random 112 mg/dL (60-115); Potassium 4.1 mmol/L (3.3-5.1); Sodium 145 mmol/L (135-145)
[2022-10-09 06:22] LABS: Hematocrit 33.9 % (42.0-52.0); Hemoglobin 10.8 g/dl (14.0-18.0); Mean Corpuscular HGB Conc 31.9 g/dl (31.0-36.0); Mean Corpuscular Hemoglobin 30.1 pg (27.0-33.0); Mean Corpuscular Volume 94.4 fL (80.0-98.0); Mean Platelet Volume 10.5 fL (9.4-12.4); Platelet Count 206 X10*3/uL (160-400); Red Blood Count 3.59 X10*6/uL (4.60-5.80); Red Cell Distribution Width 12.8 % (11.0-16.0); White Blood Count 13.7 X10*3/uL (4.8-10.8)
[2022-10-09 07:05] VITALS: BP 119/58; PULSE 69; RESP 18; TEMP 36.1; O2SAT 96
[2022-10-09 10:01] VITALS: BMI 20.5
--- NOTE | 2022-10-09 10:17 | MHC.CLN ---
NUTRITION CONSULT FOR TUBE FEEDING. RECOMMEND TUBE FEED JEVITY 1.0 AT MAX GOAL RATE 90 ML PER HOUR. FREE WATER FLUSH 120 ML Q 6 HOURS. PROVIDES 2290 KCALS (30.5 KCALS/KG); 96 G PROTEIN (1.5 G/KG); FREE WATER FROM FORMULA AND FLUSH 2284 ML (30.5 ML/KG). CURRENTLY RUNNING AT 50 ML/HOUR, ADVANCE PER PROTOCOL. PATIENT APPEARS TO BE POOR HISTORIAN. STATED THAT HE TAKES A LITTLE BY MOUTH AND TAKES LIQUID FOOD VIA PEG, NO FORMULA. FOOD IS PUREED BY . PER NURSE, HAS NOCTURNAL TUBE FEED FORMULA AT HOME. LEFT MESSAGE WITH TO CONFIRM TUBE FEEDING. INCREASED NUTRITION NEEDS DUE TO PROLONGED CATABOLIC ILLNESS. APPEARS THIN WITH MILD DEPLETION OF BODY FAT IN RIB CAGE AND MILD DEPLETION OF MUSCLE MASS IN CLAVICLE. NUTRITION DX NON SEVERE MALNUTRITION IN THE CONTEXT OF CHRONIC ILLNESS. FOLLOW FOR TUBE FEED TOLERANCE, RESIDUALS AND LABS. SEE CLINICAL NUTRITION ASSESSMENT 10/09/22.
--- NOTE | 2022-10-09 10:32 | MHC.CM.PN ---
Addendum entered by Baylee Morelos RN 10/09/22 15:38: PATIENT REFUSES TO COMPLETE HCP Original Note: PATIENT AWARE OF CARTER DELIVERY AND COPY BEING LEFT IN ROOM FOR HIM AND . PATIENT GIVES PERMISSION FOR STAFF TO SPEAK WITH . HE SAYS THAT SHE WILL BE HERE TODAY NO HCP ON FILE AND PATIENT PATIENT REPORTS THAT HE WALKS INDEPENDENTLY; HOWEVER, STATES THAT HE USES A ROLLING COMPUTER CHAIR TO MOBILIZE. CM FOLLOWING
[2022-10-09] MEDS: cefTRIAXone sodium 1 GM in 0.9 % Sodium Chloride 50 ML IV (11:37)
--- NOTE | 2022-10-09 11:49 | P.PNIM_ITS ---
Subjective Subjective Date of Service: 10/09/22 Interval History: Anxious, crying he wants to go home BCx positive for GPCs in clusters Review of Systems Review of Systems: Yes all other systems are reviewed and are negative Physical Exam Vital Signs: Vital Signs: Last Vital Signs Temp 97 F 10/09/22 07:05 Pulse 69 10/09/22 07:05 Resp 18 10/09/22 07:05 BP 119/58 L 10/09/22 07:05 Pulse Ox 96 10/09/22 07:05 O2 Del Method Nasal Cannula 10/09/22 07:05 O2 Flow Rate 2 10/09/22 07:05 BMI result Body Mass Index 20.5 Gen: anxious, crying, diffuse muscle wasting HEENT: sclera anicteric, moist mucus membranes Neck: supple Lungs: clear to auscultation bilaterally Heart: regular rate and rhythm, no murmurs Abd: soft, non-tender, non-distended Ext: no edema Skin: warm/well-perfused Neuro: alert and oriented x3, decreased strength throughout Psych: anxious Objective Data Active Medications Acetaminophen (Acetaminophen 325 Mg Tablet) 650 mg G-TUBE Q6H PRN PRN Reason: Pain, Mild (Pain Scale 1-3) Docusate Sodium (Docusate Sodium 100 Mg/10 Ml Liquid) 50 mg PO DAILY PRN PRN Reason: Constipation Enoxaparin Sodium (Enoxaparin Sodium 40 Mg/0.4 Ml Syringe) 40 mg SUBCUT Q24H [facility] Last Admin: 10/08/22 14:57 Dose: Not Given Documented By: MILLY Non-Admin Reason: Patient Refused Ceftriaxone Sodium 1 gm/ (Sodium Chloride) 50 mls @ 100 mls/hr IV Q24H [facility] Last Admin: 10/09/22 11:37 Dose: 100 mls/hr Documented By: INDIRA Sodium Chloride (Ns) 1,000 mls @ 100 mls/hr IVCONT .Q10H [facility] Last Admin: 10/09/22 10:23 Dose: Not Given Documented By: INDIRA Non-Admin Reason: IV Running Vancomycin HCl 1,250 mg/ (Sodium Chloride) 250 mls @ 166.667 mls/hr IV ONCE ONE Stop: 10/09/22 13:14 Ondansetron HCl (Ondansetron Hcl 4 Mg/2 Ml Vial) 4 mg IVPUSH Q8H PRN PRN Reason: Nausea and Vomiting Pharmacy Consult (Consult Rx Perform Med Rec) 1 each MISCELLANE ONCE PRN PRN Reason: Consult order Pharmacy Consult (Consult Rx Vancomycin Dosing) 1 each MISCELLANE DAILY PRN PRN Reason: Consult order Sodium Chloride (0.9 % Sodium Chloride Flush 3 Ml Syringe) 3 ml IVFLUSH QSHIFT [facility] Last Admin: 10/09/22 07:43 Dose: Not Given Documented By: INDIRA Non-Admin Reason: IV Running Labs 10/09/22 05:47 10/09/22 05:47 Labs: Laboratory Results - last 24 hr 10/09/22 10/09/22 05:47 05:47 MCV 94.4 MCH 30.1 MCHC 31.9 RDW 12.8 Plt Count 206 MPV 10.5 Absolute Nucleated RBC 0.000 Nucleated RBC % (auto) 0.0 Anion Gap 12 Estim Creat Clear Calc 106.1 Estimated GFR > 60 Random Glucose 112 Calcium 10.3 H Microbiology Microbiology Results: Microbiology 10/08/22 10:03 Blood Culture - Preliminary Blood - Venous Prelim: GPC Gram Stain only Assessment and Plan (1) Acute UTI: Status: Acute (2) Dehydration: Status: Acute Plan d#2 62yo M with advanced MS not on disease-modifying therapy, on G-tube feeds, wheelchair-dependent Found down on ground, denies LOC C/o urinary urgency Noted to have leukocytosis, elev BUN/Cr, hypernatremia, pyuria Admitted for dehydration + UTI GPC bacteremia? # UTI - ceftriaxone d#2, follow BCx/UCx # possible bacteremia - IV vanco pending speciation/susceptibilities # leukocytosis - improving with UTI treatment # dehydration - IV fluids # hyperNa - resolved with fluid repletion # MS - Neurology consult - PT evaluation # anxiety - Psychiatry consult # mild pr/tiffani malnut - tube feeds, Nutrition culsted # VTE ppx: LMWH # dispo: TBD In my clinical judgment, the patient requires continued inpatient hospitalization for the following reasons: IV ABX Time Spent With Patient Time: Total time managing care of this patient today ___35_ minutes. Quality Stroke Does the patient have a stroke diagnosis?: No VTE Prior VTE?: No VTE Risk Level:: Medical - moderate - high VTE Device Contraindication: Treatment Not Indicated VTE Drug Contraindication: N/A - Med Ordered
--- NOTE | 2022-10-09 12:05 | PM.NEUROCN ---
History of Present Illness Data of Consult Service Date: 10/09/22 Primary Care Provider: Rizwan Galarza MD [facility] Reason for consult: MS 62 years old man who apparently has multiple sclerosis though details of diagnosis and previous medical records were not available. He was not on any immunomodulating drugs. He said that he had seen Dr. Peter Tesfaye in [place] but could not tell me when. In any case he was not following any neurologist a regular basis. He was found on the floor at home and was brought to hospital. It was reported that he was getting confused and not using wheelchair. Review of Systems Review of Systems: Could not be reliably done with him PMFSH Past Medical History Medical History Multiple sclerosis Social History Social History Patient Tobacco Use Status: Never used Tobacco service: No Meds Allergies Allergy/AdvReac Type Severity Reaction Status Date / Time No Known Allergies Allergy Verified 10/08/22 07:42 Active Medications: Current Medications Acetaminophen (Acetaminophen 325 Mg Tablet) 650 mg G-TUBE Q6H PRN PRN Reason: Pain, Mild (Pain Scale 1-3) Docusate Sodium (Docusate Sodium 100 Mg/10 Ml Liquid) 50 mg PO DAILY PRN PRN Reason: Constipation Enoxaparin Sodium (Enoxaparin Sodium 40 Mg/0.4 Ml Syringe) 40 mg SUBCUT Q24H [facility] Last Admin: 10/08/22 14:57 Dose: Not Given Ceftriaxone Sodium 1 gm/ (Sodium Chloride) 50 mls @ 100 mls/hr IV Q24H [facility] Last Admin: 10/09/22 11:37 Dose: 100 mls/hr Sodium Chloride (Ns) 1,000 mls @ 100 mls/hr IVCONT .Q10H [facility] Last Admin: 10/09/22 10:23 Dose: Not Given Vancomycin HCl 1,500 mg/ (Sodium Chloride) 500 mls @ 333.333 mls/hr IV ONCE ONE Stop: 10/09/22 13:17 Lorazepam (Lorazepam 2 Mg/Ml Vial) 1 mg IVPUSH Q6H PRN PRN Reason: anxiety Ondansetron HCl (Ondansetron Hcl 4 Mg/2 Ml Vial) 4 mg IVPUSH Q8H PRN PRN Reason: Nausea and Vomiting Pharmacy Consult (Consult Rx Perform Med Rec) 1 each MISCELLANE ONCE PRN PRN Reason: Consult order Pharmacy Consult (Consult Rx Vancomycin Dosing) 1 each MISCELLANE DAILY PRN PRN Reason: Consult order Sodium Chloride (0.9 % Sodium Chloride Flush 3 Ml Syringe) 3 ml IVFLUSH QSHIFT [facility] Last Admin: 10/09/22 07:43 Dose: Not Given Home Medications Medication Instructions Recorded Confirmed Last Taken Type docusate sodium 50 mg capsule 50 mg PO DAILY PRN Constipation 10/08/22 10/08/22 Unknown History Physical Exam Vital Signs: Vital Signs: Last Vital Signs Temp 97 F 10/09/22 07:05 Pulse 69 10/09/22 07:05 Resp 18 10/09/22 07:05 BP 119/58 L 10/09/22 07:05 Pulse Ox 96 10/09/22 07:05 O2 Del Method Nasal Cannula 10/09/22 07:05 O2 Flow Rate 2 10/09/22 07:05 BMI result Body Mass Index 20.5 Neuro: Other: He is alert and awake with normal spontaneity of speech fluency comprehension and flat to wake affect. Pupils are round. With right gaze deviation his right I did not cross midline. There was no obvious nystagmus. Face was symmetrical. There was no obvious focal arm or leg weakness. [id number]-[id number] testing revealed [id number] bilateral ataxia. Deep tendon reflexes are 1+ with slightly brisk in legs with equivocal plantars. [id number] spasticity was noted in legs. Results Labs 10/09/22 05:47 10/09/22 05:47 Labs: Short CBC 10/09/22 Range/Units 05:47 WBC 13.7 H (4.8-10.8) X10*3/uL Hgb 10.8 L (14.0-18.0) g/dl Hct 33.9 L (42.0-52.0) % Plt Count 206 (160-400) X10*3/uL BMP 10/09/22 05:47 Sodium 145 Potassium 4.1 Chloride 111 H Carbon Dioxide 26 BUN 24 H Creatinine 0.64 Calcium 10.3 H UA suggested UTI. Microbiology Microbiology Results: Microbiology 10/08/22 10:03 Blood - Venous Blood Culture - Preliminary Prelim: GPC Gram Stain only Assessment and Plan (1) Encephalopathy: Status: Acute 62 years old man probably with UTI related encephalopathy resulting in falling and confusion. Apparently he had underlying diagnosis of multiple sclerosis. Details were not available as far as his medical records and previous experience with MS drugs is concerned. In any case present presentation was not suggestive of MS exacerbation. My recommendation is to treat UTI and deal with other affairs in outpatient setting. He has a neurologist in [place], which he can follow-up. Time Spent With Patient Time: Total time managing care of this patient today ____ minutes. Procedures Date of Service Date of Service: 10/09/22
[2022-10-09] MEDS: LORazepam 2 MG/ML VIAL 1 MG IVPUSH ×2 (12:15→18:15)
[2022-10-09] MEDS: vancomycin HCL 1,500 MG in 0.9 % Sodium Chloride 500 ML 333.33 MG IV (12:15)
--- NOTE | 2022-10-09 12:40 | PHA.PROG ---
Admission Date/Time: October 08, 2022 13:45 Indication: BACTEREMIA Weight in k.9 kg Adjusted body weight in K.76 [place] body weight in K Obesity Dosing Indication % IBW:20.5 Serum Creatinine - Last 168 Hours 10/08/22 10/09/22 07:41 05:47 Creatinine 0.80 0.64 Estimated CrCl and GFR - Last 168 Hours 10/08/22 10/09/22 07:41 05:47 Estim Creat Clear Calc 86.7 106.1 Estimated GFR > 60 > 60 Vancomycin Loading Dose: 1500 MG Current Vancomycin Dosing Regimen: 1000 MG Q12 Vancomycin Monitoring using AUC goal of 400 - 600 range with trough as surrogate marker:480 WITH TROUGH 14.1 Date and Time for next Vancomycin Level to be drawn: 10/10 @2100 Pharmacist Comments on Vancomycin Plan: Vancomycin dosing will take advantage of [employer] as a clinical decision support tool that uses Bayesian modeling to calculate individual patient's pharmacokinetic parameters and forecast the patient's drug concentration time course with the target goal AUC 24 range of 400 - 600 mg/L/hr.
[2022-10-09 13:23] VITALS: O2SAT 95
--- NOTE | 2022-10-09 15:35 | MHC.CM.PN ---
, BELLA, IN ROOM. CASE MANAGEMENT EXPLAINED M.O.O.N. BELLA VERBALIZES UNDERSTANDING. PATIENT REFUSES ANY REHAB OR [facility] SERVICES REFERRALS. PATIENT BEGAN TO CRY WHEN DISCUSSING ANY PREVIOUS SERVICES HE STATES WE DON'T NEED THAT GIVEN FAMILY RESOURCE GUIDE. CM FOLLOWING
[2022-10-09 15:58] VITALS: BP 160/75; PULSE 89; RESP 17; TEMP 37.2; O2SAT 96
--- NOTE | 2022-10-09 18:29 | PM.PSYCN ---
History of Present Illness Date of Service: 10/09/22 Chief Complaint: Dehydration UTI Reason for Consult: anxiety HPI Narrative: per medicine 10/08 Admission Note: Pt is a 62-year-old male with a PMH significant for?advanced MS not on home meds who presents to the ED for evaluation of fall this morning. Pt was found by on the floor of her bathroom when she woke.? It is unknown how long the patient has been on the ground.? Patient has advanced MS and is supposed to get around via wheelchair in the house.? Patient's reports the patient has lately been forgetting to use his wheelchair and attempting to walk on his own.? Has had multiple falls in the past few weeks though he has declined to come to the emergency room for all prior falls to today. Pt will be admitted to the hospital under observation for treatment further evaluation of dehydration and UTI in the setting of advanced MS. 62yo M with advanced MS not on disease-modifying therapy, on G-tube feeds, wheelchair-dependent Found down on ground, denies LOC C/o urinary urgency Noted to have leukocytosis, elev BUN/Cr, hypernatremia, pyuria Dry oropharynx Plan admit to M/S under observation, give ceftriaxone and follow UCx, give IV fluids, recheck CBC + lytes, Neurology consult, PT evaluation.? Also nutrition consult re tube feeds per medicine 10/09 Progress Note: Interval History: Anxious, crying he wants to go home BCx positive for GPCs in clusters d#2 62yo M with advanced MS not on disease-modifying therapy, on G-tube feeds, wheelchair-dependent Found down on ground, denies LOC C/o urinary urgency Noted to have leukocytosis, elev BUN/Cr, hypernatremia, pyuria Admitted for dehydration + UTI GPC bacteremia? # anxiety - Psychiatry consult Psychiatry Interview 10/09 afternoon: pt is reclining in his bed watching TV, alert. he greets/welcomes MD appropriately and is able to indicate where the controller for the TV is when MD requests to mute the volume. he is extremely difficult to understand due to dysarthric speech, but in general he appears to be calm and attempting to explain his behavior and circumstances in a rational and logical manner. some responses seem to be off, such as upon being asked his mood he replied, i can't sleep, and then on being asked his mood again he replied, going home, thank god. he informed MD nursing staff had told him he is going home today, which this senior writer does not believe to be the case. later in the interview he did spontaneously offer, i'm not depressed. MD confronted pt about his spell of anxious crying and saying he wanted to go home earlier in the day, and pt explained this event by referring to his losing it and saying he had not slept in 2 days, so he was feeling a bit off. he made no request to discharge home, although he clearly would prefer that, and he did not indicate he was feeling anxious. his affect was calm and stable throughout the interview. he denied any mental health history or treatment. the only help he requested of this senior writer was some medication to help him sleep. per report from nursing staff, pt's has described a subacute worsening of cognitive performance in recent weeks with a rapid decline in the past several days. this change in his mental status, in addition to an apparently labile mood state, and in the setting of UTI, is highly suggestive of delirium. due to his apparently delirious state and communication difficulties, more in-depth cognitive investigation deferred. Past Psychiatric History: pt denies any h/o psych hospitalizations, suicide attempts, self-injurious behavior, outpatient treatment, or trauma. [facility] Medical History Multiple sclerosis Family History: denies Social History: lives with his in his own home. unemployed. Substance History: denies use of any substances. states he last used anything more than 30 years ago. Trauma History: denies Diagnostics Vital Signs (24Hr): Vital Signs - 24 hr 10/08/22 23:47 10/09/22 07:05 10/09/22 13:23 Temperature 98 F 97 F Pulse Rate 68 69 Respiratory Rate 19 18 Blood Pressure 119/63 119/58 L Pulse Oximetry 93 96 95 Oxygen Delivery Method Nasal Cannula Nasal Cannula Oxygen Flow Rate 2 2 10/09/22 15:58 Temperature 98.9 F Pulse Rate 89 Respiratory Rate 17 Blood Pressure 160/75 H Pulse Oximetry 96 Oxygen Delivery Method Room Air Oxygen Flow Rate BMI result Body Mass Index 20.5 Labs 10/09/22 05:47 10/09/22 05:47 Labs: Laboratory Results - last 48 hr 10/08/22 10/08/22 10/08/22 07:41 07:41 11:02 WBC 19.4 H RBC 3.56 L Hgb 11.0 L Hct 33.3 L MCV 93.5 MCH 30.9 MCHC 33.0 RDW 12.6 Plt Count 228 MPV 10.3 Immature Gran % (Auto) 0.7 H Neut % (Auto) 88.5 H Lymph % (Auto) 1.8 L Mccracken % (Auto) 7.4 Eos % (Auto) 1.2 Baso % (Auto) 0.4 Lymph # (Auto) 0.4 L Mccracken # (Auto) 1.4 H Eos # (Auto) 0.2 Baso # (Auto) 0.1 Abs Immat Gran (auto) 0.13 H Absolute Neuts (auto) 17.2 H Absolute Nucleated RBC 0.000 Nucleated RBC % (auto) 0.0 Sodium 146 H Potassium 3.7 Chloride 106 Carbon Dioxide 27 Anion Gap 17 BUN 37 H Creatinine 0.80 Estim Creat Clear Calc 86.7 Estimated GFR > 60 Random Glucose 116 H Calcium 10.7 H D Total Creatine Kinase 209 H Urine Color Yellow Urine Appearance Clear Urine pH >= 9.0 Ur Specific [place] 1.020 Urine Protein Trace Urine Glucose (UA) Negative Urine Ketones Negative Urine Blood Trace H Urine Nitrite Negative Ur Leukocyte Esterase Trace H Urine RBC 11-20 H Urine WBC 6-10 H Ur Squamous Epith Cells 0-2 Urine Bacteria 4+ Hyaline Casts 0-2 10/09/22 10/09/22 05:47 05:47 WBC 13.7 H RBC 3.59 L Hgb 10.8 L Hct 33.9 L MCV 94.4 MCH 30.1 MCHC 31.9 RDW 12.8 Plt Count 206 MPV 10.5 Immature Gran % (Auto) Neut % (Auto) Lymph % (Auto) Mccracken % (Auto) Eos % (Auto) Baso % (Auto) Lymph # (Auto) Mccracken # (Auto) Eos # (Auto) Baso # (Auto) Abs Immat Gran (auto) Absolute Neuts (auto) Absolute Nucleated RBC 0.000 Nucleated RBC % (auto) 0.0 Sodium 145 Potassium 4.1 Chloride 111 H Carbon Dioxide 26 Anion Gap 12 BUN 24 H Creatinine 0.64 Estim Creat Clear Calc 106.1 Estimated GFR > 60 Random Glucose 112 Calcium 10.3 H Total Creatine Kinase Urine Color Urine Appearance Urine pH Ur Specific O[place] Urine Protein Urine Glucose (UA) Urine Ketones Urine Blood Urine Nitrite Ur Leukocyte Esterase Urine RBC Urine WBC Ur Squamous Epith Cells Urine Bacteria Hyaline Casts Imaging Radiology Impressions: ITS Impressions Cervical Spine X-Ray 10/08/22 08:55 IMPRESSION: Nondiagnostic study. Chest X-Ray 10/08/22 08:55 IMPRESSION: No acute cardiopulmonary process. Cervical Spine CT 10/08/22 10:25 IMPRESSION: Unremarkable cervical spine. No acute abnormality. Mental Status Exam Mental Status Exam Narrative: awake and alert, watching TV. cooperative with interview, no PMA/PMR. speech dysarthric making him quite difficult to comprehend clearly. nml rate, amount, loudness, tone, latency. thoughts variably linear and logical to tangential. affect constricted, normo-intense, non-labile. mood i can't sleep, and i'm going home, thank god. he did assert he is not depressed at another point of the interview. denies SI/SIBI/HI/AVH. Medications Medications Current Medications Acetaminophen (Acetaminophen 325 Mg Tablet) 650 mg G-TUBE Q6H PRN PRN Reason: Pain, Mild (Pain Scale 1-3) Docusate Sodium (Docusate Sodium 100 Mg/10 Ml Liquid) 50 mg PO DAILY PRN PRN Reason: Constipation Enoxaparin Sodium (Enoxaparin Sodium 40 Mg/0.4 Ml Syringe) 40 mg SUBCUT Q24H [facility] Last Admin: 10/09/22 12:15 Dose: Not Given Ceftriaxone Sodium 1 gm/ (Sodium Chloride) 50 mls @ 100 mls/hr IV Q24H [facility] Last Infusion: 10/09/22 12:10 Dose: Infused Sodium Chloride (Ns) 1,000 mls @ 100 mls/hr IVCONT .Q10H [facility] Last Admin: 10/09/22 13:34 Dose: 100 mls/hr Vancomycin HCl 1,000 mg/ (Sodium Chloride) 270 mls @ 270 mls/hr IV Q12H [facility] Lorazepam (Lorazepam 2 Mg/Ml Vial) 1 mg IVPUSH Q6H PRN PRN Reason: anxiety Last Admin: 10/09/22 18:15 Dose: 1 mg Ondansetron HCl (Ondansetron Hcl 4 Mg/2 Ml Vial) 4 mg IVPUSH Q8H PRN PRN Reason: Nausea and Vomiting Pharmacy Consult (Consult Rx Perform Med Rec) 1 each MISCELLANE ONCE PRN PRN Reason: Consult order Pharmacy Consult (Consult Rx Vancomycin Dosing) 1 each MISCELLANE DAILY PRN PRN Reason: Consult order Sodium Chloride (0.9 % Sodium Chloride Flush 3 Ml Syringe) 3 ml IVFLUSH QSHIFT FLACO Last Admin: 10/09/22 14:28 Dose: Not Given Allergies Allergies Allergy/AdvReac Type Severity Reaction Status Date / Time No Known Allergies Allergy Verified 10/08/22 07:42 Assessment & Plan Assessment & Plan (1) Encephalopathy: Status: Acute Code(s): G93.40 - Encephalopathy, unspecified (2) Acute UTI: Status: Acute Code(s): N39.0 - Urinary tract infection, site not specified Plan pt appears to be delirious. he denies any mental health history or treatment, and his present symptoms are likely more related to his delirious state than a mental illness. it is possible the delirium is superimposed on a certain amount of cognitive disorder. once his delirium is clearerd and his mental status is believed to have returned to baseline, he should return to see his outpt neurologist for further evaluation and treatment. recommendations: treat cause of delirium, which appears to be UTI, as you are doing. supportive care otherwise until delirium clears, which could take several weeks. pt did c/o insomnia, he could be given trazodone 50 mg QHS MR x 1 PRN. any agitation in delirium could be addressed with low-dose neuroleptic, such as 2.5 to 5 mg of olanzapine every 4 hours PRN. outpt F/U with his established neurologist. Total time managing care of this patient today __75__ minutes.
[2022-10-09 19:49] VITALS: BP 167/80; PULSE 95; RESP 18; TEMP 37.6
[2022-10-09] MEDS: OLANZapine 10 MG VIAL 5 MG IM (21:59)
[2022-10-09] MEDS: vancomycin HCL 1,000 MG in 0.9 % Sodium Chloride 250 ML 270 MG IV (23:35)
[2022-10-09 23:59] VITALS: BP 143/73; PULSE 85; RESP 18; TEMP 36.9; O2SAT 98
--- NOTE | 2022-10-10 02:04 | PC.NURSE ---
10/09/22 2200 Pt agitated combative trying to get oob wants to go home, trying to pull IV out notified ordered zyprexa 5mg IM given at 2200 with good effect.
[2022-10-10 06:32] LABS: Creatinine Clr Calc Pharmacy 126.1; Estimated Glomerular Filt Rate > 60
[2022-10-10 08:00] VITALS: BP 140/74; PULSE 84; RESP 18; TEMP 36.8; O2SAT 98
--- NOTE | 2022-10-10 09:52 | P.PNIM_ITS ---
Subjective Subjective Date of Service: 10/10/22 Interval History: anxious with agitated delirium yesterday got one dose IM olanzapine overnight now sleepy but arousable Review of Systems Review of Systems: Yes all other systems are reviewed and are negative Physical Exam Vital Signs: Vital Signs: Last Vital Signs Temp 98.3 F 10/10/22 08:00 Pulse 84 10/10/22 08:00 Resp 18 10/10/22 08:00 BP 140/74 H 10/10/22 08:00 Pulse Ox 98 10/10/22 08:00 O2 Del Method Room Air 10/10/22 08:00 O2 Flow Rate 2 10/09/22 07:05 BMI result Body Mass Index 20.5 Gen: sleepy but arousable, diffuse muscle wasting HEENT: sclera anicteric, moist mucus membranes Neck: supple Lungs: clear to auscultation bilaterally Heart: regular rate and rhythm, no murmurs Abd: soft, non-tender, non-distended Ext: no edema Skin: warm/well-perfused Neuro: decreased strength throughout, spastic legs Psych: impaired insight Objective Data Active Medications Acetaminophen (Acetaminophen 325 Mg Tablet) 650 mg G-TUBE Q6H PRN PRN Reason: Pain, Mild (Pain Scale 1-3) Docusate Sodium (Docusate Sodium 100 Mg/10 Ml Liquid) 50 mg PO DAILY PRN PRN Reason: Constipation Enoxaparin Sodium (Enoxaparin Sodium 40 Mg/0.4 Ml Syringe) 40 mg SUBCUT Q24H [facility] Last Admin: 10/09/22 12:15 Dose: Not Given Documented By: INDIRA Non-Admin Reason: Patient Refused Ceftriaxone Sodium 1 gm/ (Sodium Chloride) 50 mls @ 100 mls/hr IV Q24H [facility] Last Infusion: 10/09/22 12:10 Dose: 0 mls/hr Documented By: INDIRA Sodium Chloride (Ns) 1,000 mls @ 100 mls/hr IVCONT .Q10H [facility] Last Admin: 10/09/22 23:35 Dose: 100 mls/hr Documented By: ABDOUL Vancomycin HCl 1,000 mg/ (Sodium Chloride) 270 mls @ 270 mls/hr IV Q12H [facility] Last Infusion: 10/10/22 00:42 Dose: 0 mls/hr Documented By: ABDOUL Olanzapine (Olanzapine 2.5 Mg Tablet) 2.5 mg PO Q4H PRN PRN Reason: agitated delirium Ondansetron HCl (Ondansetron Hcl 4 Mg/2 Ml Vial) 4 mg IVPUSH Q8H PRN PRN Reason: Nausea and Vomiting Pharmacy Consult (Consult Rx Perform Med Rec) 1 each MISCELLANE ONCE PRN PRN Reason: Consult order Pharmacy Consult (Consult Rx Vancomycin Dosing) 1 each MISCELLANE DAILY PRN PRN Reason: Consult order Sodium Chloride (0.9 % Sodium Chloride Flush 3 Ml Syringe) 3 ml IVFLUSH QSHIFT FLACO Last Admin: 10/10/22 07:50 Dose: Not Given Documented By: JUSTIN Non-Admin Reason: IV Running Trazodone HCl (Trazodone Hcl 50 Mg Tablet) 50 mg PO BEDTIME PRN PRN Reason: insomnia Labs 10/09/22 05:47 10/10/22 05:27 Labs: Laboratory Results - last 24 hr 10/10/22 05:27 Estim Creat Clear Calc 126.1 Estimated GFR > 60 Microbiology Microbiology Results: Microbiology 10/08/22 10:03 Blood Culture - Preliminary Blood - Venous Prelim: GPC Gram Stain only 10/08/22 10:09 Blood Culture - Preliminary Blood - Venous No growth after 24 hours. 10/08/22 Unknown Urine Culture - Preliminary Urine clean catch - Urine sharma top Culture in progress. Assessment and Plan (1) Acute UTI: Status: Acute (2) Dehydration: Status: Acute Plan d#3 62yo M with advanced MS not on disease-modifying therapy, on G-tube feeds, wheelchair-dependent Found down on ground, denied LOC but poor historian due to delirium C/o urinary urgency Noted to have leukocytosis, elev BUN/Cr, hypernatremia, pyuria Admitted for dehydration + UTI + delirium GPC bacteremia? # UTI - ceftriaxone d#3, follow BCx/UCx # possible bacteremia from BCx 10/08 - IV vanco pending speciation/susceptibilities # leukocytosis - improving with UTI treatment # agitated delirium vs encephalopathy due to UTI - Psychiatry consulted: trazodone prn insomnia, olanzapine prn agitation # dehydration - given IV fluids # hyperNa - resolved with fluid repletion # MS - Neurology consulted, follow up with outpatient neurologist - PT evaluation: needs STR # mild protein/calorie malnutrition - tube feeds, Nutrition conculsted # VTE ppx: LMWH # dispo: STR In my clinical judgment, the patient requires continued inpatient h ospitalization for the following reasons: IV ABX, ?bacteremia Time Spent With Patient Time: Total time managing care of this patient today __35_ minutes. Quality Stroke Does the patient have a stroke diagnosis?: No VTE Prior VTE?: No VTE Risk Level:: Medical - moderate - high VTE Device Contraindication: Treatment Not Indicated VTE Drug Contraindication: N/A - Med Ordered
[2022-10-10] MEDS: vancomycin HCL 1,000 MG in 0.9 % Sodium Chloride 250 ML 270 MG IV (10:23)
[2022-10-10] MEDS: cefTRIAXone sodium 1 GM in 0.9 % Sodium Chloride 50 ML IV (11:47)
[2022-10-10] MEDS: Enoxaparin Sodium 40 MG/0.4 ML SYRINGE SUBCUT (13:21)
[2022-10-10] MEDS: 0.9 % Sodium Chloride Flush 3 ML SYRINGE IVFLUSH (15:34)
[2022-10-10 15:45] VITALS: BP 144/78; PULSE 71; RESP 20; TEMP 36.7; O2SAT 96
[2022-10-11] VITALS: BP 140/80; PULSE 65; RESP 18; TEMP 36.3; O2SAT 95
[2022-10-11] MEDS: 0.9 % Sodium Chloride Flush 3 ML SYRINGE IVFLUSH ×2 (01:03→07:39)
[2022-10-11] MEDS: Acetaminophen 325 MG TABLET 650 MG G-TUBE (04:31)
[2022-10-11 06:22] LABS: Hematocrit 35.2 % (42.0-52.0); Hemoglobin 11.8 g/dl (14.0-18.0); Mean Corpuscular HGB Conc 33.5 g/dl (31.0-36.0); Mean Corpuscular Hemoglobin 31.1 pg (27.0-33.0); Mean Corpuscular Volume 92.6 fL (80.0-98.0); Mean Platelet Volume 10.4 fL (9.4-12.4); Platelet Count 265 X10*3/uL (160-400); Red Cell Distribution Width 12.3 % (11.0-16.0); White Blood Count 9.9 X10*3/uL (4.8-10.8)
[2022-10-11 06:36] LABS: Anion Gap 13 (12-20); Blood Urea Nitrogen 20 mg/dL (9-16); Carbon Dioxide 26 mmol/L (22-29); Chloride 106 mmol/L (96-108); Creatinine Clr Calc Pharmacy 105.1; Estimated Glomerular Filt Rate > 60; Glucose Random 117 mg/dL (60-115); Potassium 3.8 mmol/L (3.3-5.1); Sodium 141 mmol/L (135-145)
[2022-10-11 07:46] VITALS: BP 132/81; PULSE 81; RESP 18; TEMP 36.3; O2SAT 98
[2022-10-11] MEDS: Doxycycline Monohydrate 100 MG CAPSULE PO (09:00)
--- NOTE | 2022-10-11 09:13 | PC.NURSE ---
pt refusing continuous tube feeding stating I feel full , residual checked at 0730 and 0900 was 0, +BS, tube feeding paused for now, Dr. Childs aware
--- NOTE | 2022-10-11 10:19 | MHC.CLN ---
F/U TF PAUSED THIS MORNING DUE TO PATIENT FEELING FULL. RESIDUALS=0, CHECKED X 2 THIS AM. WHEN ABLE, RECOMMEND CONTINUE CURRENT TUBE FEEDING AND FLUSH: JEVITY 1.0 AT MAX GOAL RATE 90 ML PER HOUR. FREE WATER FLUSH 120 ML Q 6 HOURS. PROVIDES 2290 KCALS (30.5 KCALS/KG); 96 G PROTEIN (1.5 G/KG); FREE WATER FROM FORMULA AND FLUSH 2284 ML (30.5 ML/KG). PATIENT WITH AGITATED DELIRIUM PER MD NOTE. INCREASED NUTRITION NEEDS DUE TO PROLONGED CATABOLIC ILLNESS. FOLLOW FOR TUBE FEED TOLERANCE, RESIDUALS AND LABS.
[2022-10-11] MEDS: cefTRIAXone sodium 1 GM in 0.9 % Sodium Chloride 50 ML IV (11:18)
--- NOTE | 2022-10-11 12:27 | P.DS_ITS ---
DS: Providers Provider Date of Service: 10/11/22 Date of admission: 10/08/22 13:45 Primary care physician: Rizwan Galarza MD Consults: 10/08/22 13:50 Consult to Neurology Routine Consulting Provider: [facility] Reason for consultation: Pt with advanced MS, declining, no outpatient neurologist, not on meds Has provider been notified: No 10/09/22 12:00 Consult to Psychiatry Routine Consulting Provider: Psych Covering Reason for consultation: anxiety 10/09/22 14:09 Consult for Sitter Routine Reason for consultation: safety DS: Diagnosis Discharge Diagnosis (1) Acute UTI: Status: Acute (2) Dehydration: Status: Acute (3) Toxic metabolic encephalopathy: Status: Acute (4) Physical deconditioning: Status: Acute (5) Acute hypernatremia: Status: Acute DS: Summary Hospital Course Hospital Course: Admission note HPI Pt is a 62-year-old male with a PMH significant for?advanced MS not on home meds who presents to the ED for evaluation of fall this morning. Pt was found by on the floor of her bathroom when she woke.? It is unknown how long the patient has been on the ground.? Patient has advanced MS and is supposed to get around via wheelchair in the house.? Patient's reports the patient has lately been forgetting to use his wheelchair and attempting to walk on his own.? Has had multiple falls in the past few weeks though he has declined to come to the emergency room for all prior falls to today.? Patient himself does not know how he fell. Denies lightheadedness or dizziness, does not think he tripped over anything. He also cannot provide a reason for why he did not use his wheelchair this morning.? Patient currently denies any acute medical complaints.? Denies any musculoskeletal pain.? No headache. No chest pain/pressure, palpitations.? Shortness of breath.? Denies fever, chills, nausea, vomiting, diarrhea, abdominal pain.? Patient's notes he has been urinating much more frequently than normal the past few days.? Patient denies dysuria.? Patient's also reports cognitive decline in the patient during the last year so, but especially in the past 3-4 weeks.? Patient has been more forgetful than normal, confused at times.? notes, for instance, she often finds the patient running his head under the sink without a clear reason as to why he is doing this. Pt is not currently on any MS meds and not followed by neurology, only his PCP. Last visit to a neurologist was a few years ago. Of note, patient arrived via EMS with cervical collar in place d/t patient's neck contracture from MS.? Patient not complaining of neck pain.? CT of cervical spine showed no acute abnormality and cervical spine collar was removed. In the ED patient was afebrile but with soft BP as low was 99/57. Labs were significant for leukocytosis of 19.4, H&H of 11.0/33.3, sodium of 146, elevated BUN of 37, creatinine kinase 209.? UA positive for leukocyte esterase, wbc's 6- 10, urine bacteria 4+, negative for nitrate. CXR showed no acute cardiopulmonary process.? X-ray of cervical spine non diagnostic.? CT of cervical spine unremarkable with no acute abnormality. Pt was treated with IVF and ceftriaxone. Pt will be admitted to the hospital under observation for treatment further evaluation of dehydration and UTI in the setting of advanced MS. Hospital course The patient was admitted to the hospital with history of advanced MS not on disease-modifying therapy, on G-tube feeds, wheelchair-dependent who was found down on ground with altered mentation and complaint of urinary urgency. Noted to have Urine infection and hypernatremia on admission. # UTI Grew Staph hominis in urine. blood cultures contaminent. treated with ceftriaxone IV, sensitive to Doxycycline for 5 days on discharge. # agitated delirium and toxic metabolic encephalopathy due to UTI Improved with treatment of infection. Psychiatry consulted and recommended trazodone prn insomnia. to be followed by neurology as outpatient for dementia work up. # Hypernatremia secondary to dehydration Resolved with fluid supplement. # History of MS Neurology consulted, follow up with outpatient neurologist for management. # Fall, physical deconditioning. PT evaluation: needs STR. Patient prefers to go home with . to do VNA for home PT. Continue Doxycycline as prescrbied Trazodone as needed for anxiety\bedtime to help sleep To follow up with neurology as outpatient for further evaluation of MS and possible dementia To do physical therapy at home Time Spent with Patient Time attestation: Total time managing care of this patient today ____ minutes. Discharge coordination time: Greater than 30 minutes Quality: Safe Use of Opioids Does Pt have an Active Cancer Diagnosis on the Problem List?: No Quality: Stroke Does the patient have a stroke diagnosis?: No Physical Exam Vital Signs: Vital Signs: Last Vital Signs Temp 97.3 F 10/11/22 07:46 Pulse 81 10/11/22 07:46 Resp 18 10/11/22 07:46 BP 132/81 10/11/22 07:46 Pulse Ox 98 10/11/22 07:46 O2 Del Method Room Air 10/11/22 07:46 O2 Flow Rate 2 10/09/22 07:05 BMI result Body Mass Index 20.5 Const: Other: Constitutional : Awake, asking to go back home, gets easily anxious, not in distress Neck : Normal inspection, Supple Cardiovascular : RRR, no JVP, no lower extremity edema Respiratory : good bilateral air entry, no crackles, wheezes or rhonchi Gastrointestinal: soft, lax, Normal bowel sounds, Non tender, G-tube clean with no surrounding erythema Skin : Warm, Dry skin and callus Neurological : Alert & oriented to self and place, speech coherent but low, no obvious focal arm or leg weakness but overall weak. [id number] bilateral ataxia. [id number] spasticity in legs DS: Data Data Completed and Pending Labs on day of discharge: Laboratory Results - last 24 hr 10/11/22 10/11/22 06:06 06:06 WBC 9.9 RBC 3.80 L Hgb 11.8 L Hct 35.2 L MCV 92.6 MCH 31.1 MCHC 33.5 RDW 12.3 Plt Count 265 D MPV 10.4 Absolute Nucleated RBC 0.000 Nucleated RBC % (auto) 0.0 Sodium 141 Potassium 3.8 Chloride 106 Carbon Dioxide 26 Anion Gap 13 BUN 20 H Creatinine 0.66 Estim Creat Clear Calc 105.1 Estimated GFR > 60 Random Glucose 117 H Calcium 10.0 Preliminary micro results at discharge 10/08/22 10:09 Blood Culture - Preliminary Blood - Venous No growth after [address] scan - head: Radiologist's impression: ITS Impressions Cervical Spine X-Ray 10/08/22 08:55 IMPRESSION: Nondiagnostic study. Chest X-Ray 10/08/22 08:55 IMPRESSION: No acute cardiopulmonary process. Cervical Spine CT 10/08/22 10:25 IMPRESSION: Unremarkable cervical spine. No acute abnormality. Discharge Plan Discharge Anticipated Discharge Date/Time: 10/11/22 11:58 Patient Disposition: Home Health Service Discharge Diagnosis: Acute urine infection cough acute Delerium Referrals: Rizwan Galarza MD [Primary Care Provider] - 1 Week Discharge Medications: New doxycycline monohydrate 100 mg Capsule 100 mg PO Q12H Qty: 10 0RF trazodone 50 mg Tablet 50 mg PO BEDTIME PRN (Reason: insomnia) Qty: 30 0RF Continued docusate sodium 50 mg Capsule 50 mg PO DAILY PRN (Reason: Constipation) Discharge Orders: Discharge Order (Routine); Ordered 10/11/22 Ordered By: Vini Childs Diet: Advance to usual diet Activity on Discharge: As tolerated Stand Alone Forms: Patient Portal Discharge page Care Plan Goals: Read below Health Concerns: Read below Plan of Treatment: Read below Assessment: You were admitted to the hospital for evaluation of fall, altered mentaiton and evidence of urine infection. Treated with IV antibiotics and evaluated by psychiatry and neurology who recommended outpatient neurological evaluation for possible dementia and to use Tradozone medication as needed. Continue Doxycycline as prescrbied Trazodone as needed for anxiety\bedtime to help sleep To follow up with neurology as outpatient for further evaluation of MS and possible dementia To do physical therapy at home
--- NOTE | 2022-10-11 12:43 | W.MHC.F2F ---
Service Date Service Date: 10/11/22 Encounter Date of encounter: 10/11/22 Reasons for Services Signs and symptoms assessed: Physical deconditioning Calluses Reason for correction: wound care Reason for physical therapy: home safety and mobility and therapeutic exercises Homebound: Leaving the home is medically contraindicated at this time without the asist of a device and/or another person due th the listed conditions above and below. Reason homebound: unsteady gait / fall risk Certification: Based on the above findings, I certify that this patient is confined to the home and needs intermittent correction care, physical therapy and/or speech therapy, or continues to need occupational therapy. The patient is under my care, and I have initiated the establishment of the plan of care. The patient will be followed by a physician who will periodically review the plan of care. Time Spent With Patient Time: Total time managing care of this patient today ____ minutes.
--- NOTE | 2022-10-11 13:50 | MHC.CM.PN ---
Patient is discharged today to home. Patient preference for [facility] agencey is [facility]. The have been active with the agency in the past. [facility] was referred; but unable to accept the patient. At this time they are at capacity. They are not takinf any more patient on. [facility] has accepted the patient. They will have a delayed SOC; which has been oked by MD and Family. [facility] is booked for 2pm pickle cutter.
== END 2022-10-11 14:34 | disposition home health service (06) ==
LOC: HO.ED 12:01 → HO.EDOVER 13:55 → HO.S3 14:22
PROVIDERS: Family Medicine; Admitting Provider Student in an Organized Health Care Education/Training Program; Emergency Provider Emergency Medicine; PCP Internal Medicine; Visit Provider Student in an Organized Health Care Education/Training Program
DX: N39.0 Urinary tract infection, site not specified (principal); B95.7 Other staphylococcus as the cause of diseases classified elsewhere; E87.0 Hyperosmolality and hypernatremia; E86.0 Dehydration; G92.8 Other toxic encephalopathy; R53.81 Other malaise; S40.812A Abrasion of left upper arm, initial encounter; D72.829 Elevated white blood cell count, unspecified; M54.2 Cervicalgia; W18.30XA Fall on same level, unspecified, initial encounter; R29.6 Repeated falls; Z91.81 History of falling; G35 Multiple sclerosis; Y93.89 Activity, other specified; Y92.013 Bedroom of single-family (private) house as the place of occurrence of the external cause; Y99.9 Unspecified external cause status; Z79.899 Other long term (current) drug therapy
CPT/HCPCS: 36415; 71045; 72020; 72125; 80048; 81001; 82550; 82565; 85025; 85027; 87040; 87086; 87088; 87147; 87186; 87205; 96361; 96365; 96366; 96367; 96372; 96375; 96376; 97110; 97162; 97530; 99221; 99285; J0696; J1650; J2060; J3370; J3371

== ENCOUNTER 2022-10-12 17:02 | Emergency (ER) | payer MEDICARE, MEDICAID, SELFPAY ==
[2022-10-12 17:07] VITALS: BP 104/62; BP 96/52; PULSE 83; PULSE 95; RESP 18; TEMP 36.3; O2SAT 94; O2SAT 96; BMI 22.5
--- NOTE | 2022-10-12 17:47 | PC.NURSE ---
pt alert/oriented to person and place. per EMS pt was here at [facility] yesterday and discharged. Pt filled doxycycline prescription today for UTI treatment. called [facility] who advised to call [facility] bc she is unable to care for at home. Pt allowed to stay in clothes for now.
[2022-10-12 18:16] VITALS: BP 99/58; PULSE 79; RESP 16; O2SAT 99
--- NOTE | 2022-10-12 19:33 | PC.NURSE ---
Assumed care of pt. pt lying on stretcher, requesting to go home. at bedside, tearful. Wafe states inabilitity to care for pt at home time lock expert, citing as reason for bringing him in today. Pt has increased dietary requirements in presence of G tube, able to swallow meds via crushing or small pill form in pudding/applesauce/jello, otherwise has thickened liquid requirement given dysphagia. plan to request CM assessment for possible PT @ home, temporary rehab placement or other alternative to assist with care. Pt has multiple bruises in various stages of healing on bilat knees and shins, verified by as frequent falls at home. VSS at this time.
[2022-10-12 20:00] VITALS: BP 134/74; PULSE 94; RESP 20; O2SAT 99
--- NOTE | 2022-10-12 20:35 | ED.GENADULT ---
HPI - General Adult General Chief complaint: Failure to Thrive Stated complaint: BEHAVIORAL,FTT D/T DEMENTIA,RECENT D/C PER EMS Time Seen by Provider: 10/12/22 20:06 Source: patient, family, RN notes reviewed and old records reviewed Mode of arrival: EMS Limitations: other (Patient has severe dementia and poor historian) History of Present Illness HPI narrative: 62-year-old male past medical history significant for advanced MS, dementia presents for evaluation of failure to thrive. Patient was discharged from this facility yesterday after a 4 day stay for a UTI Per the patient's , the patient lives at home with her and she is unable to care for him. The patient has a G-tube for feeds, he is unable to care for himself and the reports that he is too heavy for her to care for a long The patient states he feels ?fine and has no complaints No reported fevers The patient is on antibiotics for a urine infection from his recent discharge Related Data Previous Rx's Medication Instructions Recorded doxycycline monohydrate 100 mg 100 mg PO Q12H #10 caps 10/11/22 capsule Allergies Allergy/AdvReac Type Severity Reaction Status Date / Time No Known Allergies Allergy Verified 10/08/22 07:42 Review of Systems Constitutional: Constitutional: Denies chills, Denies fever(s), Denies headache(s) and Reports weakness ENT: Denies headache(s) Cardiovascular: Cardiovascular: Denies chest pain and Denies dyspnea Respiratory: Respiratory: Denies dyspnea Gastrointestinal: Gastrointestinal: Denies abdominal pain, Denies nausea and Denies vomiting Integumentary/Breasts: Skin/Breast: Denies rash Neurologic: Denies headache(s) and Reports weakness PMFSH Past Medical History Medical History Multiple sclerosis Social History Social History Patient Tobacco Use Status: Never used Tobacco Smoked in Last 30 Days: No Use of substances other than those prescribed or required for medical reasons: No Advance Directives: No Advance Directives Information Provided: No service: No Physical Exam ED Vital Signs: Vital Signs - 24 hr 10/12/22 17:07 10/12/22 18:16 10/12/22 20:00 Temperature 97.4 F Pulse Rate 83 79 94 Respiratory Rate 18 16 20 Blood Pressure 96/52 L 99/58 L 134/74 Pulse Oximetry 96 99 99 Oxygen Delivery Method Room Air Room Air 10/12/22 22:00 10/13/22 00:00 10/13/22 02:00 Temperature Pulse Rate 71 59 62 Respiratory Rate 18 18 18 Blood Pressure 128/70 107/58 L 110/60 Pulse Oximetry 99 97 95 Oxygen Delivery Method 10/13/22 06:00 Temperature 98.5 F Pulse Rate 59 Respiratory Rate 14 Blood Pressure 110/61 Pulse Oximetry 98 Oxygen Delivery Method Room Air BMI result Body Mass Index 22.5 Const General: healthy appearing, comfortable, no acute distress, alert and awake Nutritional Appearance: well nourished HENMT Head: Yes normocephalic and Yes atraumatic Eyes Eyelids: Yes eyelids normal Conjunctivae: conjunctivae normal Sclerae: sclerae normal Corneas: corneas normal Pupils: Equal, round and reactive pupils present EOM: EOMs intact bilaterally Neck Neck: Yes full ROM Resp Effort & Inspection: normal respiratory effort, able to speak in complete sentences, no audible wheezes and not labored Auscultation: clear to auscultation bilaterally Cardio Rate: regular rate Rhythm: regular rhythm GI Inspection: No distended and Yes G-tube present Palpation (GI): Soft to palpation, not firm, nontender, no guarding and not rigid Auscultation: normoactive bowel sounds Skin General skin exam: no rashes or lesions noted and elasticity normal Neuro Cranial nerves: Yes Equal, round and reactive pupils present and Yes Bilaterally intact EOM present Extrem Other: Moving all extremities well without any obvious deformities Course Course Course Narrative: 10/13/22--704--physician observation continued. Vital signs stable, no reported complaints overnight. Pending PT/case management [id number]--case management evaluated patient this morning, patient appears depressed and hopeless. Frustrated with being unable to obtain help he requires. Will obtain psych consult for depression and competency as patient appears more at baseline this hospitalization. Will also obtain speech and swallow eval, and dietitian consult for tube feedings Medications Administered Discontinued Medications Generic Name Dose Route Start Last Admin Trade Name Freq PRN Reason Stop Dose Admin Sodium Chloride 1,000 mls @ 999 mls/hr 10/12/22 20:30 10/12/22 21:37 Ns IV 10/12/22 21:30 Infused .Q1H1M FLACO Infusion Olanzapine 10 mg 10/12/22 20:41 10/12/22 20:48 Olanzapine 10 Mg Vial IM 10/12/22 20:42 10 mg STAT STA Administration Medical Decision Making Medical Decision Making [facility] Narrative: 62-year-old male presents for evaluation of failure to thrive. The patient's is seeking long-term placement or additional services at home. Unfortunately case management and physical therapy are not available at this time of night on Friday. The patient likely be a physician observation overnight to see case management in the morning. Differential Diagnosis Differential Diagnoses: The differential diagnosis associated with the presentation includes Failure to thrive MS Dementia UTI Metabolic encephalopathy Lab Data 10/12/22 20:29 10/12/22 20:29 Labs: Lab Results 10/12/22 10/12/22 Range/Units 20:29 20:29 WBC 11.3 H (4.8-10.8) X10*3/uL RBC 3.73 L (4.60-5.80) X10*6/uL Hgb 11.4 L (14.0-18.0) g/dl Hct 34.2 L (42.0-52.0) % MCV 91.7 (80.0-98.0) fL MCH 30.6 (27.0-33.0) pg MCHC 33.3 (31.0-36.0) g/dl RDW 12.3 (11.0-16.0) % Plt Count 286 (160-400) X10*3/uL MPV 9.9 (9.4-12.4) fL Immature Gran % (Auto) 1.2 H (0.0-0.4) % Neut % (Auto) 79.8 H (45-73) % Lymph % (Auto) 7.6 L (20-40) % [place] % (Auto) 8.2 (2-11) % Eos % (Auto) 2.8 (0-4) % Baso % (Auto) 0.4 (0-2) % Lymph # (Auto) 0.9 L (1.2-4.9) X10*3/uL [place] # (Auto) 0.9 (0.1-1.2) X10*3/uL Eos # (Auto) 0.3 (0.0-0.4) X10*3/uL Baso # (Auto) 0.1 (0.0-0.2) X10*3/uL Abs Immat Gran (auto) 0.14 H (0.00-0.03) X10*3/uL Absolute Neuts (auto) 9.0 H (2.0-8.3) x10*3/uL Absolute Nucleated RBC 0.000 (0.0-0.012) X10*3/uL Nucleated RBC % (auto) 0.0 (0.0-0.2) /100WBC Sodium 139 (135-145) mmol/L Potassium 4.7 D (3.3-5.1) mmol/L Chloride 103 (96-108) mmol/L Carbon Dioxide 25 (22-29) mmol/L Anion Gap 16 (12-20) BUN 33 H (9-16) mg/dL Creatinine 0.72 (0.5-1.4) mg/dL Estim Creat Clear Calc 105.4 Estimated GFR > 60 Random Glucose 101 (60-115) mg/dL Calcium 9.9 (8.4-10.2) mg/dL Total Bilirubin 0.5 (0.0-1.0) mg/dL AST 16 (5-37) U/L ALT 16 (0-40) U/L Alkaline Phosphatase 72 (39-117) U/L Total Protein 6.9 (6.5-8.0) g/dL Albumin 3.4 L (3.5-5.0) g/dL Lipase 19 (8-78) U/L Discharge Plan Discharge Clinical Impression: Adult failure to thrive Patient Disposition: Still a Patient Instructions: Failure to Thrive in Older Adults (ED) Prescriptions: No Action doxycycline monohydrate 100 mg Capsule 100 mg PO Q12H Qty: 10 0RF
--- NOTE | 2022-10-12 21:37 | PC.NURSE ---
Pt behavior now calm and cooperative with staff, no longer with outbursts. Pt watching television at this time.
[2022-10-12 22:00] VITALS: BP 128/70; PULSE 71; RESP 18; O2SAT 99
--- NOTE | 2022-10-12 22:28 | PC.NURSE ---
Called spouse to notify her that pt is resting cofortably at this time, no acute behavioral or medical concners at this time.
[2022-10-13] VITALS (8 sets, daily range): BP systolic 102–115; BP diastolic 57–61; PULSE 58–76; RESP 14–18; TEMP 36.6–36.9; O2SAT 95–100
--- NOTE | 2022-10-13 06:00 | PC.NURSE ---
pt has remained calm and cooperative after administration of medications earlier in shift. plan continues to be Case Mgmt eval.
--- NOTE | 2022-10-13 08:27 | PC.NURSE ---
Called to obtain feeding tube orders. states she uses isosource 1.2. 500mls at 9am, 500 at noon, 250 at 2pm, 250 at 4pm, and 500 and 7pm. Provider scott
--- NOTE | 2022-10-13 09:11 | MHC.EDTECH ---
Patient inc and cleaned up and changed
--- NOTE | 2022-10-13 09:16 | MHC.CM.PN ---
Addendum entered by Bree Whittington 10/13/22 09:55: Referrals for Home health care services have been sent. Patient preferences will be obtained once offers received. Original Note: Male 62 HX MS Lives at home with his . no help in the home. Patient brought to ER; because his states that she can no longer care for him at home. The patient was admitted and discharged a few days ago. He was admitted for a UTI. The patient declined all services at discharge. The patient's affect is flat mostly. At times he has episodes of crying with and a expression of anguish. The patient confirmed that he is feeling hopeless and discouraged. He has given up. That is why was resistant to interventions. Emotional support and encouragement were provided. The patient has agreed to accept the offer of T/W to advocate for him to get the care that he needs. The patient has completed a HCP naming his Tayla. After meeting with the patient, the Provider was updated. The following have been ordered: Psych eval: Depression and cognition. PT, OT, and FILM COLOR TESTER (swallow+ cognition evaluation). Floor Layer Tile consult, patient is on Tube Feeds.DP will depend on the evaluation results, and the patient's preferences. ACUTE vs STR VS home with services, via BLS. Referrals will be sent to SNFs, Acute rehabs and [facility]. CM will follow.
--- NOTE | 2022-10-13 09:59 | PC.NURSE ---
Failed bedside swallow eval, NPO diet ordered. [place] cath placed draining small amount of clear yellow urine. Continues to denies pain or discomfort.
--- NOTE | 2022-10-13 11:15 | PC.NURSE ---
Multiple attempts to reach to bring in patients home g tube feed unsuccesful
--- NOTE | 2022-10-13 13:13 | PC.NURSE ---
brought in patients ismolite 1.2. per order 400mls given via gravity. tolerated well by patient. g tube flushing well. g tube Surrounding skin dry and intact with no s/s of infection
--- NOTE | 2022-10-13 16:23 | PC.NURSE ---
Patient declining 4:30pm g tube feed- stating he does not want now because he feels full from last feed at 12:30p. Will re-approach patient. Sitting up in recline chair watching t.v. Denies pain or discomfort. at bedside.
--- NOTE | 2022-10-13 16:46 | PC.NURSE ---
Per patient and request patient assisted into a pull up. Patient stating he does not want any more g -tube feed for the rest of the evening. Educated and patient about the importance of scheduled g tube feeds/h20 flushes to prevent weight loss and dehydration. Patient stating I`m positive I do not want it'.
--- NOTE | 2022-10-13 18:29 | PC.NURSE ---
Patient with episode of incontinence, incontinence care provided. Continues to state he does not want g tube feedings. Sitting in recline watching t.v at this time
--- NOTE | 2022-10-13 19:47 | MHC.EDTECH ---
THIS PCT ASSUMED CARE OF PATIENT AT 1900 ,PT SITTING IN RECLINER WATCHING TELEVISION ,PT JUST LEAVE .
--- NOTE | 2022-10-13 21:33 | MHC.EDTECH ---
PATIENT VITALS SIGN TAKEN ,PT WAS INCONTINENT OF URINE ,SPONGE BATH GIVEN ,PT SAT BACK IN RECLINER WATCHING TELEVISION .
--- NOTE | 2022-10-13 21:58 | PC.NURSE ---
Report given to RN in overflow. Pt will be moved to bed 4 in overflow.
--- NOTE | 2022-10-13 23:07 | PC.NURSE ---
Assumed care of pt at 22:00, after being transferred from the main ED to ED overflow. Pt alert & orientated to person & place. Pt has a G-tube but decline any G-tube feedings at this time. Pt denies any pain or discomfort. No FLACO meds at this time. Pt refused to take off sneakers while in bed. Pt's personal belongings at bedside. Waiting for CM assessment in the morning. Will continue to monitor.
[2022-10-14 06:00] VITALS: BP 118/72; PULSE 70; RESP 17; TEMP 36.6; O2SAT 96
--- NOTE | 2022-10-14 09:21 | PC.NURSE ---
Pt refused covid test. Thuy Ying notified. Will continue to obtain specimen
--- NOTE | 2022-10-14 11:14 | PC.NURSE ---
Pt upset with IV in arm and removed it himself. Agreed to having Tube feed at 1030. Tolerated bolus 400ml and water flush 120ml. Dressing to tube site changed.
--- NOTE | 2022-10-14 11:32 | MHC.CM.ED ---
Addendum entered by Kamla Figueroa 10/14/22 12:44: [facility] is able to offer a bed. Patient's , Tayla accepts bed. Kelly SCOTT booked for 2pm. [facility] with chart. Patient, Tayla, Taniya MARI and Thuy LYON aware. MDS completed. Sent to [facility] and [facility]. Original Note: Patient remains in ER overflow. Physical therapy eval completed. Short term rehab is recommended. Met with patient and , Tayla in regards to discharge planning. Both agreeable to STR. Prefer to stay locally. Referral made to all facilities in [place]. Patient and Tayla aware referral will be expanded as needed. Continue to monitor for d/c needs.
--- NOTE | 2022-10-14 14:06 | PC.NURSE ---
Report given to [facility] nurse
== END 2022-10-14 14:15 ==
PROVIDERS: Emergency Provider Emergency Medicine; PCP Internal Medicine
DX: R62.7 Adult failure to thrive (principal); Z68.22 Body mass index [BMI] 22.0-22.9, adult; Z20.822 Contact with and (suspected) exposure to COVID-19; G35 Multiple sclerosis; F03.90 Unspecified dementia, unspecified severity, without behavioral disturbance, psychotic disturbance, mood disturbance, and anxiety
CPT/HCPCS: 36415; 80053; 81001; 83690; 85025; 87635; 93005; 96360; 96372; 97162; 97166; 99285

== ENCOUNTER 2022-11-08 18:45 | Emergency (ER) | payer MEDICARE, MEDICAID, SELFPAY ==
[2022-11-08 19:04] VITALS: BP 116/60; BP 96/57; PULSE 68; PULSE 70; RESP 16; TEMP 36.9; O2SAT 95; O2SAT 99; BMI 20.1
--- NOTE | 2022-11-08 19:43 | ED_ITS ---
HPI - General Adult General Chief complaint: General Medical Stated complaint: pulled g-tube 30mins ago Time Seen by Provider: 11/08/22 19:43 Source: family (, Tayla) Mode of arrival: EMS Limitations: other (Patient is aphasic, information comes from his ) History of Present Illness HPI narrative: 62-year-old male who is currently in a alf facility for rehab after frequent falls. Patient has a history of aphasia and dysphagia and has a G- tube. The G-tube was accidentally dislodged this evening approximately 1 hour prior to coming to emergency department. Patient was not ill in any way ac cording to the . 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 Social history: Patient lives at home with his but is currently in a alf facility for rehab after fall. Medical History Multiple sclerosis Social History Social History Patient Tobacco Use Status: Never used Tobacco Advance Directives Date on File: 10/14/22 service: No Physical Exam ED Vital Signs: Vital Signs - 24 hr 11/08/22 19:04 Temperature 98.5 F Pulse Rate 70 Respiratory Rate 16 Blood Pressure 96/57 L Pulse Oximetry 99 Oxygen Delivery Method Room Air BMI result Body Mass Index 20.1 Vital signs were normal General: Awake, alert, male patient, pleasant, cooperative, nonverbal, does not appear to be in distress Abdomen: The patient does have a ostomy in the epigastric area, this is not bleeding and does not appear to be infected. Abdomen is soft, nontender nondistended with normoactive bowel sounds Procedures Procedure Narrative Procedure Narrative: G-tube replacement The G-tube ostomy was prepped with Betadine. A 16 Norwegian 5 cc balloon G2 was easily inserted through the ostomy. The balloon was filled with 5 cc of sterile water. The G-tube was then taped in place. The patient tolerated the procedure well. Medical Decision Making Medical Decision Making [facility] Narrative: 62-year-old male with a history of aphasia and dysphagia who had a accidental dislodgement of his G-tube. The G-tube was easily replaced by me. The patient will be discharged back to his alf facility Differential Diagnosis Differential Diagnoses: The differential diagnosis associated with the presentation includes G-tube displacement, dissection of ostomy Independent Historian Clinical information obtained from an independent historian. History obtained from or confirmed by: Spouse Discharge Plan Discharge Clinical Impression: Dislodged gastrostomy tube Patient Disposition: er [facility] Additional Instructions: You had a 16 Norwegian G-tube with a 5 mL balloon which was accidentally dislodged. I replaced your G-tube with a 16 Norwegian G-tube with a 5 mL balloon and the balloon was filled with sterile water. Contact your your crew mess attendant to discuss replacement of the in 6 months. Follow-up with your doctor in 2 days. Please return to the emergency department if your symptoms get worse or if you develop any symptoms that are concerning to you. Prescriptions: No Action doxycycline monohydrate 100 mg Capsule 100 mg PO Q12H Qty: 10 0RF
[2022-11-08 21:25] VITALS: BP 119/75; PULSE 64; RESP 16; O2SAT 96
--- NOTE | 2022-11-08 21:43 | PC.NURSE ---
this rn assumed c are of pt @ 1997. pt at bedside. dr bond replaced dislodged g-tube. 16 ghanaian g-tube replaced 5ml balloon filled. pt tolerated well. report handoff to ems. this rn contacted staff at [facility] for report. report give to vicente last
== END 2022-11-08 21:58 | disposition skilled nursing facility (03) ==
PROVIDERS: Emergency Provider Emergency Medicine Emergency Medical Services; PCP Internal Medicine
DX: K94.20 Gastrostomy complication, unspecified (principal); R13.10 Dysphagia, unspecified; Z79.899 Other long term (current) drug therapy
CPT/HCPCS: 99284